=== PATIENT | female | born 1965 | race Caucasian/White ===

== ENCOUNTER 2019-04-24 11:40 | Outpatient (CLI) | payer OTHER, SELFPAY ==
--- NOTE | ~2019-04-24 | XR_ITS ---
EXAMINATION: XR chest 2V EXAM DATE: 04/24/2019 11:50 INDICATION: Cough for 3 weeks. TECHNIQUE: Frontal and lateral projections of the chest obtained and reviewed. Comparison is made to prior examination from 06/06/2018. FINDINGS: Moderate chronic hyperinflation. The lungs are clear. There are no pleural effusions. Th e cardiomediastinal silhouette is within normal limits. There is no pneumothorax suspected. The bon es and soft tissues are unremarkable. IMPRESSION: No acute cardiopulmonary findings. Reviewed, dictated and finalized at location B. LLMENT COORDINATOR
== END 2019-04-24 11:41 | disposition home or self-care (01) ==
PROVIDERS: PCP Family Medicine; Visit Provider Family Medicine
DX: R05 Cough (principal)
CPT/HCPCS: 71046

== ENCOUNTER → 2019-10-13 16:52 | Outpatient (CLI) | payer OTHER, SELFPAY ==
--- NOTE | ~2019-10-13 | XR_ITS ---
EXAMINATION: [id number] INDICATION: Pleurodynia TECHNIQUE: A frontal view of the chest and 3 views of the bilateral ribs were obtained. COMPARISON: 04/24/2019 FINDINGS: The lungs are free of acute opacities. There is no pleural effusion or pneumothorax. The ca rdiomediastinal silhouette is normal. The visualized bones and soft tissues are unremarkable. No disp laced rib fracture is identified. IMPRESSION: 1. No acute cardiopulmonary abnormality or evidence of displaced rib fracture. Reviewed, dictated and finalized at location A.
== END ==
PROVIDERS: PCP Family Medicine; Visit Provider Family Medicine
DX: R07.81 Pleurodynia (principal)
CPT/HCPCS: 71111

== ENCOUNTER 2020-09-07 19:21 | Emergency (ER) | payer OTHER, SELFPAY ==
[2020-09-07 19:27] VITALS: BP 134/87; PULSE 70; RESP 16; TEMP 37.1; O2SAT 97
--- NOTE | 2020-09-07 19:45 | ED.BACK ---
HPI - Back Pain/Injury General Chief Complaint: Back Pain/Injury Stated Complaint: Back Injury Time Seen by Provider: 09/07/20 19:23 Source: patient and family ( ) Mode of arrival: ambulatory Limitations: no limitations History of Present Illness HPI Narrative: 55-year-old female presents to [facility] with complaints of pain to left and right mid back for the past 5 days. Patient reports that pain started after she was preventing her [id number] from falling off of the commode. 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 Patient reports that she did not fall but tweaked her back while assisting him from falling. Patient denies numbness, tingling, bowel or bladder problems, chest pain or shortness of breath. Patient has been taking ibuprofen and leftover hydrocodone with minimal relief. Patient reports that she took half a tablet of hydrocodone twice a day which did not improve her pain much. Patient denies back pain in the past. MD elicited complaint: back pain Onset (ago): day(s) (5) Similar Symptoms Previously: No Quality: sharp Exacerbating factors: movement and lifting Relieving factors: none Associated symptoms: denies other symptoms Related Data Allergies Allergy/AdvReac Type Severity Reaction Status Date / Time neomycin Allergy Unknown Swelling Verified 10/17/19 13:05 of the Eye Review of Systems Constitutional: Constitutional: Denies chills, Denies fatigue, Denies fever(s) and Denies weakness Cardiovascular: Cardiovascular: Denies chest pain, Denies rapid heart rate, Denies radiating jaw, neck or arm pain and Denies slow heart rate Respiratory: Respiratory: Denies chest congestion, Denies cough, Denies dyspnea and Denies wheezing Gastrointestinal: Gastrointestinal: Denies abdominal pain, Denies constipation, Denies diarrhea, Denies nausea and Denies vomiting Musculoskeletal: Musculoskeletal: Reports back pain, Denies joint swelling and Denies muscle cramps Integumentary/Breasts: Skin/Breast: Denies rash Neurologic: Denies dizziness and Denies syncope [facility] Surgical History Surgical History H/O right knee surgery History of removal of both ovaries Family History Family History Mother Diabetes mellitus Hypertension Family history of chronic obstructive pulmonary disease Family history of cardiovascular disease Grandparent Diabetes mellitus Cerebrovascular accident Social History Social History Smoking packs per day: 1 Smoking cigarettes per day: 20.0 Years smoked: 34 Smoking pack-years: 34.00 Smoking status: Current every day smoker Alcohol intake: never Substance use: never Gender identity (if verbalized by the patient): Female Comments At time of signature, I agree with nursing past medical, surgical, social and family history. There is no relevant family history pertinent to the presenting complaint. Exam Const: General: healthy appearing and no acute distress Orientation/consciousness: patient oriented x3 Neck: Neck: normal visual inspection Resp: Effort & Inspection: normal respiratory effort, not labored and not tachypneic Auscultation: clear to auscultation bilaterally Cardio: Rate: regular rate, not bradycardic and not tachycardic Rhythm: regular rhythm GI: Inspection: non-distended GI Palp: Yes Soft to palpation, No Tenderness to palpation present (GI) and No Guarding due to palpation present (GI) : General: No no CVA tenderness Back/Spine/Pelvis: Back: no CVA tenderness Other: Moderate amount of pain noted to right and left mid back. There is no spinal tenderness noted upon palpation. There is no swelling, bruising, erythema or rash present. There is increased amount of pain noted with range of motion to back. Hand grasps and pedal pushes are equal and strong.
[2020-09-07] MEDS: KETOROLAC (*BKC) 60 MG/2 ML VIAL 30 MG IM (19:50)
== END 2020-09-07 20:21 | disposition home or self-care (01) ==
PROVIDERS: Emergency Provider Nurse Practitioner Family; PCP Family Medicine
DX: M54.6 Pain in thoracic spine (principal); F17.219 Nicotine dependence, cigarettes, with unspecified nicotine-induced disorders
CPT/HCPCS: 96372; 99213; G0463; J1885

== ENCOUNTER 2020-11-30 15:22 | Emergency (ER) | payer OTHER, SELFPAY ==
[2020-11-30 15:38] VITALS: BP 149/97; PULSE 75; RESP 16; TEMP 37.4; O2SAT 98
--- NOTE | 2020-11-30 16:50 | ED.URI ---
HPI - URI/Sore Throat General Chief Complaint: Upper Respiratory Infection Stated Complaint: chest congestion headache Time Seen by Provider: 11/30/20 16:50 Source: patient, RN notes reviewed and old records reviewed Mode of arrival: ambulatory Limitations: no limitations History of Present Illness HPI Narrative: 55-year-old female who presents to [facility] with complaints of 1 week duration of sinus congestion headache, cough with scattered wheezing. Patient has history of bronchitis and pneumonia in the past she is a daily smoker of 1 pack for the past 35 years. Patient has noted wheezing throughout lung hughes, no tachypnea noted or accessory muscle use.Covid tested last Sunday so she could see her father in the hospital which was negative, Patient denies any fevers, chills or sweats and denies any body aches. MD elicited complaint: cough, rhinorrhea, nasal congestion and other (wheezing) Pertinent past history: pneumonia, sinusitis and other (bronchitis and pneumonia) Onset (ago): week(s) (1) Related Data Allergies Allergy/AdvReac Type Severity Reaction Status Date / Time neomycin Allergy Unknown Swelling Verified 10/17/19 13:05 of the Eye Review of Systems Review of Systems: CONSTITUTIONAL: Denies fever, chills, or sweats. EYES: Denies visual changes, redness, or discharge. ENT: Positive rhinorrhea, congestion, no sore throat, ears feel full CARDIOVASCULAR: Denies chest pain, palpitations, or edema. RESPIRATORY: Positive for productive cough denies any acute dyspnea. GASTROINTESTINAL: Denies abdominal pain, nausea, vomiting, or diarrhea. GENITOURINARY: Denies dysuria or hematuria. SKIN: Denies rash or itching. MUSCULOSKELETAL: Denies back pain, joint pain, or myalgia. NEUROLOGIC: Positive headache, no numbness, or weakness. PSYCHIATRIC: Denies anxiety or depression. All systems reviewed & are unremarkable except as noted in HPI and below [facility] Past Medical History Medical History (Updated 12/01/20 @ 00:00 by Eddie Sanchez) Bacterial sinusitis Bronchitis Surgical History Surgical History H/O right knee surgery History of removal of both ovaries Family History Family History (Updated 12/05/20 @ 22:50 by Jaylene Chopra NP) Mother Diabetes mellitus Hypertension Family history of chronic obstructive pulmonary disease Family history of cardiovascular disease Grandparent Diabetes mellitus Cerebrovascular accident Father Cerebrovascular accident Social History Social History Smoking packs per day: 1 Smoking cigarettes per day: 20.0 Years smoked: 34 Smoking pack-years: 34.00 Smoking status: Current every day smoker Alcohol intake: never Substance use: never Gender identity (if verbalized by the patient): Female Comments At time of signature, agree with nursing past medical, surgical, social and family history. There is no relevant family history pertinent to the presenting complaint Exam Narrative: GENERAL: Well-appearing, well-nourished, and in no acute distress. HEAD: Normocephalic, atraumatic. EYES: PERRLA and EOMI. ENT: Nares red with clear to light yellow rhinorrhea no epistaxis. Mucous membranes moist.TM;s normal with goodlight reflex, throat red with no lesions or exudates or tonsil enlargement, post nasal drainage NECK: Supple.no lymphadenopathy CHEST: Scattered wheezes on auscultation. No acute respiratory distress.SAO2 98% on room air HEART: Regular rate and rhythm. No murmur heard. Normal peripheral pulses. ABDOMEN: Soft, nontender, nondistended, normal active bowel sounds. EXTREMITIES: Normal range of motion. No edema. SKIN: Warm, dry, no rash. NEURO: No focal deficits. Alert and oriented x3. Course Vital Signs Vital signs: Vital Signs Temperature 37.4 C 11/30/20 15:38 Pulse Rate 75 11/30/20 15:38 Respiratory Rate 16 11/30/20 15:38
== END 2020-11-30 17:29 | disposition home or self-care (01) ==
PROVIDERS: Emergency Provider Registered Nurse; PCP Radiology Diagnostic Radiology
DX: J40 Bronchitis, not specified as acute or chronic (principal); J32.9 Chronic sinusitis, unspecified; Z20.822 Contact with and (suspected) exposure to COVID-19; F17.210 Nicotine dependence, cigarettes, uncomplicated
CPT/HCPCS: 87426; 99213; C9803; G0463

== ENCOUNTER 2021-01-26 14:18 | Outpatient (CLI) | payer OTHER, SELFPAY ==
--- NOTE | ~2021-01-26 | XR_ITS ---
XR thoracic spine 3V DATE: 01/26/2021 14:53 INDICATION: Twisting injury of upper back in August. Left thoracic back pain TECHNIQUE: AP, lateral, swimmer views COMPARISON: None FINDINGS: There is moderate anterior wedge compression fracture deformity of T7, of uncertain age, bu t new since 10/13/2019 PA chest radiograph and bilateral rib radiographic examination. No other fracture or dislocation or bone destruction. The thoracic pedicles are intact. No paraspinal soft tissue thickening. IMPRESSION: T7 compression fracture, new since 10/13/2019 Reviewed, dictated and finalized at location A.
--- NOTE | ~2021-01-26 | XR_ITS ---
XR abdomen obstructive series DATE: 01/26/2021 14:53 INDICATION: Upper abdominal pain and constipation for one week TECHNIQUE: Supine and upright AP views COMPARISON: None FINDINGS: There is a moderately prominent of fecal material in the colon but no evidence of bowel obs truction. No intraperitoneal free air. The psoas shadows are intact. No visceromegaly is detected. IMPRESSION: Moderately prominent amount fecal material in the colon; no bowel obstruction Reviewed, dictated and finalized at Location A. Reviewed, dictated and finalized at location A. IMPRESSION: Moderately prominent amount fecal material in the colon; no bowel o bstruction
[2021-01-26 18:11] LABS: Basophils Absolute Auto 0.1 K/mm3 (0.0-0.1); Basophils Percent Auto 0.8 % (0.2-1.2); Eosinophils Absolute Auto 0.2 K/mm3 (0-0.3); Eosinophils Percent Auto 2.1 % (0-4.4); Hematocrit 47.8 % (37.0-47.0); Hemoglobin 15.9 g/dL (12.0-15.0); Immature Granulocyte Absolute 0.04 K/mm3 (0.00-0.031); Immature Granulocyte Percent A 0.4 % (0-0.5); Lymphocytes Absolute Auto 3.14 K/mm3 (0.9-3.2); Lymphocytes Percent Auto 32.1 % (18.3-44.2); Mean Corpuscular HGB Conc 33.3 g/dl (32-36); Mean Corpuscular Hemoglobin 32.4 pg (26-34); Mean Corpuscular Volume 97.6 fl (80-100); Mean Platelet Volume 10.4 fl (7.4-10.4); Monocytes Absolute Auto 0.6 K/mm3 (0.1-0.6); Monocytes Percent Auto 5.8 % (2.6-8.5); Neutrophils Absolute Auto 5.7 K/mm3 (1.3-6.7); Neutrophils Percent Auto 58.8 % (45.5-73.1); Platelet Count Result 262 k/mm3 (150-375); Red Cell Distribution Width 12.6 % (11.5-14.5); White Blood Count 9.8 K/mm3 (4.5-10.0)
[2021-01-26 18:20] LABS: Alanine Aminotransferase 26 U/L (4-35); Albumin Level 4.7 g/dL (3.5-5.1); Alkaline Phosphatase 68 U/L (38-126); Anion Gap 10 mmol/L (8-16); Aspartate Amino Transferase 33 U/L (14-36); Bilirubin,Total 0.6 mg/dL (0.2-1.3); Blood Urea Nitrogen 12 mg/dL (7-17); Calcium 10.5 mg/dL (8.4-10.2); Carbon Dioxide 28 mmol/L (22-30); Chloride 102 mmol/L (98-107); Cholesterol 189 mg/dL (0-200); Estimated Glomerular Filt Rate > 60; Glucose 87 mg/dL (65-110); HDL Direct 56 mg/dL; Lipase 105 U/L (23-300); Potassium 4.3 mmol/L (3.4-5.0); Sodium 140 mmol/L (137-145); Triglycerides 109 mg/dL (<150)
[2021-01-26 18:32] LABS: LDL Cholesterol Direct 109 mg/dL
[2021-01-26 19:33] LABS: Vitamin D 25 Hydroxy 60.8 ng/mL
[2021-01-26 20:44] LABS: Hemoglobin A1C 5.3 % (<5.7)
== END 2021-01-26 14:19 | disposition home or self-care (01) ==
LOC: ANHBWCLAB 14:22
PROVIDERS: PCP Family Medicine; Visit Provider Family Medicine
DX: F41.9 Anxiety disorder, unspecified (principal); S22.069A Unspecified fracture of T7-T8 vertebra, initial encounter for closed fracture; F17.200 Nicotine dependence, unspecified, uncomplicated; Z00.00 Encounter for general adult medical examination without abnormal findings; K59.00 Constipation, unspecified; G47.00 Insomnia, unspecified; R10.9 Unspecified abdominal pain; R79.89 Other specified abnormal findings of blood chemistry; Z51.81 Encounter for therapeutic drug level monitoring; Z79.899 Other long term (current) drug therapy
CPT/HCPCS: 36415; 72072; 74019; 80053; 80061; 82306; 83036; 83690; 85025

== ENCOUNTER 2021-02-23 08:51 | Outpatient (CLI) | payer OTHER, SELFPAY ==
[2021-02-26 06:22] LABS: Ionized Calcium 5.2 mg/dL (4.8-5.6)
== END 2021-02-23 08:52 | disposition home or self-care (01) ==
PROVIDERS: PCP Family Medicine; Visit Provider Family Medicine
DX: F41.9 Anxiety disorder, unspecified (principal); F17.200 Nicotine dependence, unspecified, uncomplicated; Z00.00 Encounter for general adult medical examination without abnormal findings; E83.52 Hypercalcemia
CPT/HCPCS: 36415; 82330; 83036

== ENCOUNTER 2021-08-02 15:44 | Emergency (ER) | payer OTHER, SELFPAY ==
[2021-08-02 15:53] VITALS: BP 148/94; PULSE 72; RESP 16; TEMP 36.8; O2SAT 99
--- NOTE | 2021-08-02 16:04 | ED.SKABFB ---
HPI - Skin/Abscess/Foreign Bdy General Chief complaint: Skin/Abscess/Foreign Body Stated complaint: Rash Time Seen by Provider: 08/02/21 16:04 Source: patient, RN notes reviewed and old records reviewed Mode of arrival: ambulatory Limitations: no limitations History of Present Illness HPI narrative: 56 year old female presents to express care with complaints of rash and itching to the palm of her hands bilaterally since Sunday. Patient reports using Lotrimin cream and Benadryl orally for the itching. Patient does state that she pulled some weeds out from around her odonnell on Sunday like she has done for years, no new medication,foods, or any new lotions, soaps or detergents. complaint: rash Onset (ago): day(s) (2) Location: L hand and R hand Related Data Allergies Allergy/AdvReac Type Severity Reaction Status Date / Time neomycin Allergy Unknown Swelling Verified 01/26/21 13:23 of the Eye Review of Systems Review of Systems: CONSTITUTIONAL: Denies fever, chills, or sweats. EYES: Denies visual changes, redness, or discharge. ENT: Denies rhinorrhea, congestion, sore throat, or otalgia. CARDIOVASCULAR: Denies chest pain, palpitations, or edema. RESPIRATORY: Denies cough or dyspnea. GASTROINTESTINAL: Denies abdominal pain, nausea, vomiting, or diarrhea. GENITOURINARY: Denies dysuria or hematuria. SKIN: Positive rash to bilateral hands with itching. MUSCULOSKELETAL: Denies back pain, joint pain, or myalgia. NEUROLOGIC: Denies headache, numbness, or weakness. PSYCHIATRIC: Denies anxiety or depression. All systems reviewed & are unremarkable except as noted in HPI and below [facility] Past Medical History Medical History (Updated 08/03/21 @ 23:13 by Jaylene Chopra NP) Bacterial sinusitis Bronchitis Cystocele with rectocele surgical repair Osteopenia Surgical History Surgical History H/O right knee surgery History of removal of both ovaries Family History Family History Mother Diabetes mellitus Hypertension Family history of chronic obstructive pulmonary disease Family history of cardiovascular disease Grandparent Diabetes mellitus Cerebrovascular accident Father Cerebrovascular accident Social History Social History Smoking packs per day: 1 Smoking cigarettes per day: 20.0 Years smoked: 34 Smoking pack-years: 34.00 Smoking status: Current every day smoker Alcohol intake: never Substance use: never Gender identity (if verbalized by the patient): Female Comments At time of signature, agree with nursing past medical, surgical, social and family history. There is no relevant family history pertinent to the presenting complaint Exam Narrative: GENERAL: Well-appearing, well-nourished, and in no acute distress. HEAD: Normocephalic, atraumatic. EYES: PERRLA and EOMI. ENT: Nares clear, no rhinorrhea or epistaxis. Mucous membranes moist.TM's normal with good light reflex, throat pink with no lesions or exudates,no tonsil swelling NECK: Supple.no lymphadenopathy CHEST: Decreased to auscultation. No respiratory distress. SAO2 99% on room air, no tachypnea HEART: Regular rate and rhythm. No murmur heard. Normal peripheral pulses. ABDOMEN: Soft, nontender, nondistended, normal active bowel sounds. EXTREMITIES: Normal range of motion. No edema. SKIN: Warm, dry, smooth pink patchy rash to palms of hands no drainage noted. NEURO: No focal deficits. Alert and oriented x3. Course Course Level of Care: Express Care Visit Vital Signs Vital signs: Vital Signs Temperature 36.8 C 08/02/21 15:53 Pulse Rate 72 08/02/21 15:53 Respiratory Rate 16 08/02/21 15:53 Blood Pressure 148/94 H 08/02/21 15:53 Pulse Oximetry 99 08/02/21 15:53 Temperature 36.8 C 08/02/21 15:53 Pulse Rate 72 08/02/21 15:53 Respiratory Ra
== END 2021-08-02 16:31 | disposition home or self-care (01) ==
PROVIDERS: Emergency Provider Registered Nurse; PCP Family Medicine
DX: L25.9 Unspecified contact dermatitis, unspecified cause (principal); F17.210 Nicotine dependence, cigarettes, uncomplicated
CPT/HCPCS: 99213; G0463

== ENCOUNTER 2021-09-25 11:51 | Emergency (ER) | payer OTHER, SELFPAY ==
[2021-09-25 11:56] VITALS: BP 139/71; PULSE 71; RESP 18; TEMP 37.2; O2SAT 99
[2021-09-25 12:06] VITALS: BP 139/71; PULSE 71; RESP 18; TEMP 37.2; O2SAT 99
--- NOTE | 2021-09-25 12:07 | ED.BACK ---
HPI - Back Pain/Injury General Chief Complaint: Back Pain/Injury Stated Complaint: Back Pain Time Seen by Provider: 09/25/21 12:08 Source: patient Mode of arrival: ambulatory Limitations: no limitations History of Present Illness HPI Narrative: 56-year-old female presented for complaint of left lower back pain radiating to the hip for 3 days. States pain is located in the hip, does not radiate to the lower extremity. Endorses history of sciatica problems and known T-spine compression fracture. Denies changes to bowel and bladder, saddle paresthesia, numbness, tingling, weakness of the lower extremities. Has been taking ibuprofen and using heating pad for symptoms. Reports sinus pressure and congestion for about 1 week, stating its starting to improve. Endorses left neck lymph node swelling and bilateral ear pain. She denies associated shortness of breath, wheezing, fevers or chills. Has not been taking anything for symptoms. Related Data Allergies Allergy/AdvReac Type Severity Reaction Status Date / Time neomycin Allergy Unknown Swelling Verified 09/25/21 12:05 of the Eye Review of Systems Review of Systems: CONSTITUTIONAL: Denies body aches, fever, chills EYES: Denies visual changes ENT: Reports rhinorrhea, congestion CARDIOVASCULAR: Denies chest pain, palpitations, or edema. RESPIRATORY: Denies dyspnea. GASTROINTESTINAL: Denies abdominal pain, nausea, vomiting, or diarrhea. SKIN: Denies rash, itching, or wounds. MUSCULOSKELETAL: Reports thoracic back pain, left lower back pain and hip pain NEUROLOGIC: Denies headache, numbness, tingling, or weakness All systems reviewed & are unremarkable except as noted in HPI and below PMFSH Past Medical History Medical History Bacterial sinusitis Bronchitis Cystocele with rectocele surgical repair Osteopenia Surgical History Surgical History H/O right knee surgery History of removal of both ovaries Family History Family History Mother Diabetes mellitus Hypertension Family history of chronic obstructive pulmonary disease Family history of cardiovascular disease Grandparent Diabetes mellitus Cerebrovascular accident Father Cerebrovascular accident Social History Social History Smoking packs per day: 1 Smoking cigarettes per day: 20.0 Years smoked: 34 Smoking pack-years: 34.00 Smoking status: Current every day smoker Alcohol intake: never Substance use: never Gender identity (if verbalized by the patient): Female Comments At time of signature, I have reviewed and agree with nursing past medical, surgical, social and family history unless otherwise noted. Please see nursing chart for further information. There is no relevant family history pertinent to the presenting complaint Exam Narrative: GENERAL: Well-appearing EYES: conjunctivae clear NECK: Supple. No lymphadenopathy CHEST: Speaks in full sentences. No respiratory distress. HEART: Regular rate and rhythm. Normal and equal peripheral pulses. EXTREMITIES: Left posterior hip tender with palpation consistent with piriformis syndrome. Left lower extremity has normal strength and sensation, normal range of motion. No edema or ecchymosis, No open wounds,pulse palpable and equal bilaterally, skin warm, dry, pink. Capillary refill less than 3 seconds. Gait is guarded SKIN: Warm, dry, no rash. NEURO: Alert and oriented x3. Course Course Emergency Course: Patient is aware of diagnosis, understands and agrees to treatment plan. Anticipatory guidance given. Patient agrees to follow-up as directed and is aware of reasons to seek care at the emergency department. Portions of this record may have been created with voice recognition software Level of Care: Expr
[2021-09-25] MEDS: methylPREDNISolone SOD SUCC 125 MG VIAL IM (12:24)
== END 2021-09-25 12:44 | disposition home or self-care (01) ==
PROVIDERS: Emergency Provider Nurse Practitioner Family; PCP Family Medicine
DX: M54.16 Radiculopathy, lumbar region (principal); F17.210 Nicotine dependence, cigarettes, uncomplicated
CPT/HCPCS: 99213; G0463; J2930

== ENCOUNTER 2022-02-20 11:11 | Outpatient (CLI) | payer OTHER, SELFPAY ==
--- NOTE | ~2022-02-20 | XR_ITS ---
EXAMINATION: XR abdomen obstructive series DATE: 02/20/2022 11:33 INDICATION: Low abdominal pain. Constipation. TECHNIQUE: Supine and upright views of the abdomen. FINDINGS: Comparison with 01/26/2021 The visualized lung parenchyma is normal.. There is a nonobstructive bowel gas pattern. Gas and stool are seen throughout the colon to the level of the rectum. There is no free air. Lung bases are unre markable. No acute osseous abnormality. IMPRESSION: 1. No acute abdominal abnormality. Reviewed, dictated and finalized at location A. ROL CLERK
[2022-02-20 19:56] LABS: Basophils Absolute Auto 0.1 K/mm3 (0.0-0.1); Basophils Percent Auto 0.7 % (0.2-1.2); Eosinophils Absolute Auto 0.1 K/mm3 (0-0.3); Hematocrit 45.9 % (37.0-47.0); Hemoglobin 15.4 g/dL (12.0-15.0); Immature Granulocyte Absolute 0.01 K/mm3 (0.00-0.031); Immature Granulocyte Percent A 0.1 % (0-0.5); Lymphocytes Absolute Auto 3.14 K/mm3 (0.9-3.2); Lymphocytes Percent Auto 45.6 % (18.3-44.2); Mean Corpuscular HGB Conc 33.6 g/dl (32-36); Mean Corpuscular Hemoglobin 31.5 pg (26-34); Mean Corpuscular Volume 93.9 fl (80-100); Mean Platelet Volume 10.4 fl (7.4-10.4); Monocytes Absolute Auto 0.4 K/mm3 (0.1-0.6); Monocytes Percent Auto 6.1 % (2.6-8.5); Neutrophils Absolute Auto 3.2 K/mm3 (1.3-6.7); Neutrophils Percent Auto 46.5 % (45.5-73.1); Platelet Count Result 242 k/mm3 (150-375); Red Blood Count 4.89 M/mm3 (4.2-5.4); Red Cell Distribution Width 13.1 % (11.5-14.5); White Blood Count 6.9 K/mm3 (4.5-10.0)
[2022-02-20 20:07] LABS: Appearance Urine Clear (Clear); Bilirubin Urine Negative (Negative); Blood Urine Negative (Negative); Color Urine Yellow (Yellow); Glucose Urine UA Negative (Negative); Ketones Urine Negative (Negative); Leukocyte Esterase Ur Negative LEU/UL (NEGATIVE); Nitrate Urine Negative (Negative); Protein Urine Negative (Negative); Specific Grav Ur >= 1.030 (1.001-1.035); Urobilinogen Urine 0.2 mg/dL (<2.0)
[2022-02-20 20:10] LABS: Alanine Aminotransferase 37 U/L (6-35); Albumin Level 4.7 g/dL (3.5-5.1); Alkaline Phosphatase 80 U/L (38-126); Anion Gap 11 mmol/L (8-16); Aspartate Amino Transferase 49 U/L (14-36); Bilirubin,Total 0.8 mg/dL (0.2-1.3); Blood Urea Nitrogen 14 mg/dL (7-17); Calcium 9.3 mg/dL (8.4-10.2); Carbon Dioxide 26 mmol/L (22-30); Chloride 103 mmol/L (98-107); Cholesterol 209 mg/dL (0-200); Estimated Glomerular Filt Rate > 60; Glucose 89 mg/dL (65-110); HDL Direct 43 mg/dL; Potassium 4.2 mmol/L (3.4-5.0); Sodium 140 mmol/L (137-145); Triglycerides 194 mg/dL (<150)
[2022-02-20 20:21] LABS: LDL Cholesterol Direct 103 mg/dL
[2022-02-20 22:01] LABS: Mucus Urine Rare /lpf; RBC Urine 0-2 /hpf (0-2); WBC Urine 0-3 /hpf (0-3)
[2022-02-20 22:13] LABS: Add Urine Microscopic? NO
== END 2022-02-20 11:12 | disposition home or self-care (01) ==
LOC: ANHBWCLAB 11:13
PROVIDERS: PCP Family Medicine; Visit Provider Family Medicine
DX: R10.9 Unspecified abdominal pain (principal); K59.00 Constipation, unspecified
CPT/HCPCS: 36415; 74019; 80053; 80061; 81003; 85025

== ENCOUNTER 2022-05-10 12:18 | Emergency (ER) | payer OTHER, SELFPAY ==
--- NOTE | 2022-05-10 12:20 | ED.URI ---
HPI - URI/Sore Throat General Chief Complaint: Ear Stated Complaint: left ear / sciatic nerve Time Seen by Provider: 05/10/22 12:21 Source: patient and RN notes reviewed History of Present Illness HPI Narrative: Patient is a 57-year-old female who presents to urgent care with complaints of left ear discomfort and left-sided sciatica. Patient states that she has acute on chronic pains. Patient has been taking tramadol for the pain. States that she typically gets a steroid which seems to help. Patient states the left ears were bothering her for 1 week and she has not taken anything [id number] for her symptoms. No other acute complaints. No acute distress noted. Patient aware of the plan of care. Some parts of this dictation were generated by voice recognition software and may contain typographical and/or grammatical inaccuracies. Related Data Allergies Allergy/AdvReac Type Severity Reaction Status Date / Time neomycin Allergy Unknown Swelling Verified 02/20/22 10:45 of the Eye Review of Systems Review of Systems: CONSTITUTIONAL: Denies fever, chills, or sweats. EYES: Denies visual changes, redness, or discharge. ENT: Denies rhinorrhea, congestion, sore throat. Reports of left otalgia CARDIOVASCULAR: Denies chest pain, palpitations, or edema. RESPIRATORY: Denies cough or dyspnea. GASTROINTESTINAL: Denies abdominal pain, nausea, vomiting, or diarrhea. GENITOURINARY: Denies dysuria or hematuria. SKIN: Denies rash or itching. MUSCULOSKELETAL: Reports of left-sided low back pain NEUROLOGIC: Denies headache, numbness, or weakness. All other systems reviewed are negative, except as documented in HPI. [facility] Past Medical History Medical History Bacterial sinusitis Bronchitis Cystocele with rectocele surgical repair Osteopenia Surgical History Surgical History H/O right knee surgery History of removal of both ovaries Family History Family History Mother Diabetes mellitus Hypertension Family history of chronic obstructive pulmonary disease Family history of cardiovascular disease Grandparent Diabetes mellitus Cerebrovascular accident Father Cerebrovascular accident Social History Social History (Updated 02/20/22 @ 10:45 by Alley Cortes MA) Smoking packs per day: 1 Smoking cigarettes per day: 20.0 Years smoked: 34 Smoking pack-years: 34.00 Smoking status: Current every day smoker Alcohol intake: never Substance use: never Lack of Transportation: No Lack of Food: Never True Current Housing: I Have Housing Concerned About Future Housing: No Difficulty Paying Gas/Electric Bills: No Difficulty Paying for Meds: No Currently Unemployed: No Education: Associate Degree Difficulty w/ Childcare or Family Care: No Gender identity (if verbalized by the patient): Female Exam Narrative: GENERAL: This is a well-nourished, well-developed patient, in no apparent distress. HEAD: normocephalic, atraumatic. EYES: PERRL. Sclera clear/white. Vision is grossly intact. EARS: External ears normal, auditory canals clear and without drainage, mild bilateral eustachian tube dysfunction. TMs normal without perforation. Hearing grossly intact. NOSE: External nose normal with no obvious nasal discharge, nares without redness, no rhinorrhea. THROAT: Mucous membranes moist NECK: Neck supple SKIN: warm, intact with no suspicious lesions or rash, good texture and turgor. NEURO: awake, alert, and oriented to person, place and time. There were no obvious focal neurologic abnormalities. EXTREMITIES: No clubbing, cyanosis, or edema. BACK: Mild left lumbar tenderness with positive left SLE Course Course Level of Care: Express Care Visit Vital Signs Vital signs: Vital Signs Temperature 98.6 F 05/10/22 12:2
[2022-05-10 12:23] VITALS: BP 121/73; PULSE 69; RESP 16; TEMP 37; O2SAT 99
[2022-05-10] MEDS: predniSONE 20 MG TABLET 60 MG PO (13:04)
== END 2022-05-10 13:16 | disposition home or self-care (01) ==
PROVIDERS: Emergency Provider Nurse Practitioner Family; PCP Family Medicine
DX: M54.32 Sciatica, left side (principal); F17.210 Nicotine dependence, cigarettes, uncomplicated; M85.80 Other specified disorders of bone density and structure, unspecified site
CPT/HCPCS: 99213; G0463; J7512

== ENCOUNTER 2022-05-23 15:08 | Outpatient (CLI) | payer OTHER, SELFPAY ==
--- NOTE | ~2022-05-23 | XR_ITS ---
XR chest 2V 05/23/2022 15:16 Indication: Running sinusitis and cough Procedure: 2 view chest Comparison: 04/24/2019 Findings: Heart size normal. There is lingular atelectasis/scarring. No focal pneumonia, edema or eff usion. No pneumothorax. Impression: 1: Lingular atelectasis/scarring. Reviewed, dictated and finalized at location L. ORATE TREASURY ANALYST Impression: 1: Lingular atelectasis/scarring.
== END 2022-05-23 15:09 | disposition home or self-care (01) ==
LOC: ANHBWCIMG 15:09
PROVIDERS: PCP Family Medicine; Visit Provider Family Medicine
DX: J32.9 Chronic sinusitis, unspecified (principal); J06.9 Acute upper respiratory infection, unspecified; J18.9 Pneumonia, unspecified organism; J98.11 Atelectasis
CPT/HCPCS: 71046

== ENCOUNTER 2022-09-13 19:34 | Emergency (ER) | payer OTHER, SELFPAY ==
[2022-09-13 19:38] VITALS: BP 133/70; PULSE 70; RESP 18; TEMP 36.8; O2SAT 98
--- NOTE | 2022-09-13 19:43 | ED.SKABFB ---
HPI - Skin/Abscess/Foreign Bdy General Chief complaint: Skin/Abscess/Foreign Body Stated complaint: Rash on Left Foot Time Seen by Provider: 09/13/22 19:43 Source: patient and RN notes reviewed History of Present Illness HPI narrative: Patient is a 57-year-old female presents to urgent care with complaints of a rash to the left foot. Patient states that it started last night. States that she has had this for many years however she has not had a reoccurrence for a long time. Patient states that she use betamethasone cream on the area and has good resolution. Patient does not have any cream at home. No other acute complaints. No acute distress noted. Patient aware of the plan of care. Some parts of this dictation were generated by voice recognition software and may contain typographical and/or grammatical inaccuracies. Related Data Allergies Allergy/AdvReac Type Severity Reaction Status Date / Time neomycin Allergy Unknown Swelling Verified 09/13/22 19:45 of the Eye Review of Systems Review of Systems: CONSTITUTIONAL: Denies fever, chills, or sweats. EYES: Denies visual changes, redness, or discharge. ENT: Denies rhinorrhea, congestion, sore throat, or otalgia. CARDIOVASCULAR: Denies chest pain, palpitations, or edema. RESPIRATORY: Denies cough or dyspnea. GASTROINTESTINAL: Denies abdominal pain, nausea, vomiting, or diarrhea. GENITOURINARY: Denies dysuria or hematuria. SKIN: Reports of itchy painful rash to the top of the left foot MUSCULOSKELETAL: Denies back pain, joint pain, or myalgia. NEUROLOGIC: Denies headache, numbness, or weakness. All other systems reviewed are negative, except as documented in HPI. [facility] Past Medical History Medical History Bacterial sinusitis Bronchitis Cystocele with rectocele surgical repair Osteopenia Surgical History Surgical History H/O right knee surgery History of removal of both ovaries Family History Family History Mother Diabetes mellitus Hypertension Family history of chronic obstructive pulmonary disease Family history of cardiovascular disease Grandparent Diabetes mellitus Cerebrovascular accident Father Cerebrovascular accident Social History Social History (Updated 02/20/22 @ 10:45 by Alley Cortes MA) Smoking packs per day: 1 Smoking cigarettes per day: 20.0 Years smoked: 34 Smoking pack-years: 34.00 Smoking status: Current every day smoker Alcohol intake: never Substance use: never Lack of Transportation: No Lack of Food: Never True Current Housing: I Have Housing Concerned About Future Housing: No Difficulty Paying Gas/Electric Bills: No Difficulty Paying for Meds: No Currently Unemployed: No Education: Associate Degree Difficulty w/ Childcare or Family Care: No Gender identity (if verbalized by the patient): Female Comments At the time of my signature, I reviewed and agree with the nursing past medical, surgical, social, and family history. There is no relevant family history pertinent to the patient complaint. Exam Narrative: GENERAL: This is a well-nourished, well-developed patient, in no apparent distress. HEAD: normocephalic, atraumatic. EYES: PERRL. Sclera clear/white. Vision is grossly intact. EARS: External ears normal NOSE: External nose normal with no obvious nasal discharge, nares without redness, no rhinorrhea. THROAT: Mucous membranes moist NECK: Neck supple SKIN: Papular raised erythema rash to the dorsal medial aspect of the left foot. NEURO: awake, alert, and oriented to person, place and time. There were no obvious focal neurologic abnormalities. EXTREMITIES: No clubbing, cyanosis, or edema. Course Course Level of Care: Express Care Visit Vital Signs Vital signs: Vital Signs Temperature 98.2 F
== END 2022-09-13 19:49 | disposition home or self-care (01) ==
PROVIDERS: Emergency Provider Nurse Practitioner Family; PCP Family Medicine
DX: L30.9 Dermatitis, unspecified (principal); F17.210 Nicotine dependence, cigarettes, uncomplicated; M85.80 Other specified disorders of bone density and structure, unspecified site
CPT/HCPCS: 99213; G0463

== ENCOUNTER 2023-01-16 14:02 | Outpatient (CLI) | payer OTHER, SELFPAY ==
[2023-01-16 18:59] LABS: Hematocrit 45.4 % (37.0-47.0); Hemoglobin 14.7 g/dL (12.0-15.0); Mean Corpuscular HGB Conc 32.4 g/dl (32-36); Mean Corpuscular Hemoglobin 31.9 pg (26-34); Mean Corpuscular Volume 98.5 fl (80-100); Mean Platelet Volume 10.3 fl (7.4-10.4); Platelet Count Result 306 k/mm3 (150-375); Red Blood Count 4.61 M/mm3 (4.2-5.4); Red Cell Distribution Width 12.9 % (11.5-14.5)
[2023-01-16 19:15] LABS: Alanine Aminotransferase 26 U/L (6-35); Albumin Level 4.5 g/dL (3.5-5.1); Alkaline Phosphatase 86 U/L (38-126); Anion Gap 8 mmol/L (8-16); Aspartate Amino Transferase 69 U/L (14-36); Bilirubin,Total 0.5 mg/dL (0.2-1.3); Blood Urea Nitrogen 13 mg/dL (7-17); Calcium 9.3 mg/dL (8.4-10.2); Carbon Dioxide 29 mmol/L (22-30); Chloride 104 mmol/L (98-107); Cholesterol 192 mg/dL (0-200); Estimated Glomerular Filt Rate > 60; Glucose 93 mg/dL (65-110); HDL Direct 43 mg/dL; Magnesium 1.9 mg/dL (1.6-2.3); Sodium 141 mmol/L (137-145); Triglycerides 175 mg/dL (<150)
[2023-01-16 19:25] LABS: LDL Cholesterol Direct 102 mg/dL
[2023-01-16 19:46] LABS: Vitamin D 25 Hydroxy 37.5 ng/mL
[2023-01-16 19:52] LABS: Erythrocyte Sedimentation Rate 12 mm/hr (0-20)
[2023-01-19 21:04] LABS: ANA Cascade Screen Negative (Negative)
== END 2023-01-16 14:03 | disposition home or self-care (01) ==
PROVIDERS: PCP Nurse Practitioner Adult Health; Visit Provider Nurse Practitioner Adult Health
DX: Z12.31 Encounter for screening mammogram for malignant neoplasm of breast (principal); Z13.9 Encounter for screening, unspecified; M85.80 Other specified disorders of bone density and structure, unspecified site; M25.50 Pain in unspecified joint; E83.52 Hypercalcemia
CPT/HCPCS: 36415; 80053; 80061; 82306; 83735; 84443; 85027; 85652; 86038

== ENCOUNTER 2023-02-20 09:13 | Outpatient (CLI) | payer OTHER, SELFPAY ==
--- NOTE | ~2023-02-20 | XR_ITS ---
Lumbosacral Spine: AP and lateral views Clinical History: Pain Findings: The normal lordotic curve is maintained. The vertebral bodies and posterior elements are i ntact. The intervertebral disc spaces are preserved. The sacroiliac joints are normally outlined. Impression: No significant abnormality. Reviewed, dictated and finalized at [facility]. TRANSMISSION TECHNICIAN Impression: No significant abnormality.
--- NOTE | ~2023-02-20 | XR_ITS ---
AP and lateral views of the bilateral hips Clinical history: Pain Findings: No acute fracture or dislocation is seen. Osseous alignment is anatomic. Bilateral hip and SI joint spaces are preserved. Soft tissues are unremarkable. Impression: No significant abnormality is seen. Reviewed, dictated and finalized at [facility]. S REPRESENTATIVE MALT LIQUORS Impression: No significant abnormality is seen.
[2023-02-20 19:39] LABS: Uric Acid 3.7 mg/dL (2.5-7.5)
== END 2023-02-20 09:14 | disposition home or self-care (01) ==
PROVIDERS: PCP Nurse Practitioner Adult Health; Visit Provider Nurse Practitioner Adult Health
DX: M54.9 Dorsalgia, unspecified (principal); M25.50 Pain in unspecified joint; M25.551 Pain in right hip; M25.552 Pain in left hip
CPT/HCPCS: 36415; 72100; 73521; 84550

== ENCOUNTER 2023-06-18 10:32 | Emergency (ER) | payer OTHER, SELFPAY ==
[2023-06-18 10:42] VITALS: BP 123/76; PULSE 75; RESP 16; TEMP 37.1; O2SAT 99
--- NOTE | 2023-06-18 10:47 | ED.EXTPRO ---
HPI - Extremity Problem General Chief complaint: Extremity Problem,Nontraumatic Stated complaint: Right Hand/Arm Pain Time Seen by Provider: 06/18/23 10:47 Source: patient Mode of arrival: ambulatory Limitations: no limitations History of Present Illness HPI Narrative: 58-year-old female presented for complaint of right hand pain. Onset 5 days. Pain is primarily to the index finger (MCP joint). Endorses mild swelling, and decreased range of motion to the finger. denies bruising or wounds. Denies known injury. She states she pulled a few weeds prior to onset. States pain radiates up the arm to the neck at times since yesterday. Denies numbness, tingling, weakness of the hand. Took ibuprofen. Related Data Allergies Allergy/AdvReac Type Severity Reaction Status Date / Time neomycin Allergy Unknown Swelling Verified 02/20/23 08:39 of the Eye Review of Systems Review of Systems: CONSTITUTIONAL: Denies body aches, fever, chills CARDIOVASCULAR: Denies chest pain, palpitations, or edema. RESPIRATORY: Denies cough or dyspnea. GASTROINTESTINAL: Denies abdominal pain, nausea, vomiting, or diarrhea. SKIN: Denies rash, itching, or wounds. MUSCULOSKELETAL: Reports right hand pain Denies change in back pain, or myalgia. NEUROLOGIC: Denies headache, numbness, tingling, or weakness. All systems reviewed & are unremarkable except as noted in HPI and below PMFSH Past Medical History Medical History Bacterial sinusitis Bronchitis Cystocele with rectocele surgical repair Osteopenia Surgical History Surgical History H/O right knee surgery History of removal of both ovaries Family History Family History Mother Diabetes mellitus Hypertension Family history of chronic obstructive pulmonary disease Family history of cardiovascular disease Grandparent Diabetes mellitus Cerebrovascular accident Father Cerebrovascular accident Social History Social History Smoking packs per day: 1 Smoking cigarettes per day: 20.0 Years smoked: 34 Smoking pack-years: 34.00 Smoking status: Current every day smoker Alcohol intake: never Substance use: never Lack of Transportation: No Lack of Food: Never True Current Housing: I Have Housing Concerned About Future Housing: No Difficulty Paying Gas/Electric Bills: No Difficulty Paying for Meds: No Currently Unemployed: No Education: Associate Degree Difficulty w/ Childcare or Family Care: No Gender identity (if verbalized by the patient): Female Comments At time of signature, I have reviewed and agree with nursing past medical, surgical, social and family history unless otherwise noted. Please see nursing chart for further information. There is no relevant family history pertinent to the presenting complaint Exam Narrative: GENERAL: Well-appearing CHEST: Speaks in full sentences. No respiratory distress. HEART: Regular rate and rhythm. Normal and equal peripheral pulses. EXTREMITIES: Right 2nd MCP with mild swelling and tender with palpation. No tenderness to palmar aspect of the MCP. swelling extends from MCP to web space between 1st and 2nd digits. Slightly limited range of motion at 2nd MCP joint, endorses pain with movement and swelling prevents full ROM. Hand has normal strength and sensation, No ecchymosis, No open wounds, or obvious deformity; alignment normal, pulse palpable and equal bilaterally, skin warm, dry, pink. Capillary refill less than 3 seconds. SKIN: Warm, dry, no rash or wounds NEURO: Alert and oriented x3. PSYCH: Normal mood and affect Course Course Emergency Course: Patient is aware of diagnosis, understands and agrees to treatment plan. Anticipatory guidance given. Patient agrees to follow-
== END 2023-06-18 11:02 | disposition home or self-care (01) ==
PROVIDERS: Emergency Provider Nurse Practitioner Family; PCP Family Medicine
DX: M79.641 Pain in right hand (principal); F17.210 Nicotine dependence, cigarettes, uncomplicated; M85.80 Other specified disorders of bone density and structure, unspecified site
CPT/HCPCS: 99213; G0463

== ENCOUNTER 2023-08-23 09:59 | Outpatient (CLI) | payer OTHER, SELFPAY ==
--- NOTE | ~2023-08-23 | XR_ITS ---
Clinical Indication: Nausea and dizziness PA and lateral views of the chest: Comparison: 05/23/2022 Findings: The lungs are clear, without evidence of focal consolidation or pleural effusion. Cardiome diastinal silhouette is within normal limits. Stable compression fracture of probably T7. Impression: Clear lungs. Stable compression fracture of probably T7. Reviewed, dictated and finalized at location . Impression: Clear lungs. Stable compression fracture of probably T7.
== END 2023-08-23 10:00 | disposition home or self-care (01) ==
LOC: ANHASCIMG 10:00 → ANHBWCIMG 10:04
PROVIDERS: PCP Nurse Practitioner Adult Health; Visit Provider Nurse Practitioner Adult Health
DX: R42 Dizziness and giddiness (principal); M48.54XA Collapsed vertebra, not elsewhere classified, thoracic region, initial encounter for fracture
CPT/HCPCS: 71046

== ENCOUNTER 2023-11-01 11:56 | Outpatient (CLI) | payer OTHER, SELFPAY ==
--- NOTE | ~2023-11-01 | XR_ITS ---
Thoracic spine: Clinical Indication: Back pain AP and lateral views were performed. No fracture is seen. There is normal alignment of the vertebrae. The intervertebral disc spaces appe ar normal. Paravertebral soft tissues appear normal. Impression: No significant abnormalities noted. Reviewed, dictated and finalized at [facility]. Impression: No significant abnormalities noted.
--- NOTE | ~2023-11-01 | XR_ITS ---
Lumbosacral Spine: AP and lateral views Clinical History: Pain Findings: The normal lordotic curve is maintained. The vertebral bodies and posterior elements are i ntact. The intervertebral disc spaces are preserved. The sacroiliac joints are normally outlined. Impression: No significant abnormality. Reviewed, dictated and finalized at [facility]. Impression: No significant abnormality.
[2023-11-01 18:47] LABS: Hematocrit 47.8 % (37.0-47.0); Hemoglobin 15.6 g/dL (12.0-15.0); Mean Corpuscular HGB Conc 32.6 g/dl (32-36); Mean Corpuscular Hemoglobin 31.8 pg (26-34); Mean Corpuscular Volume 97.6 fl (80-100); Mean Platelet Volume 10.3 fl (7.4-10.4); Platelet Count Result 284 k/mm3 (150-375); Red Cell Distribution Width 12.8 % (11.5-14.5); White Blood Count 10.3 K/mm3 (4.5-10.0)
[2023-11-01 19:14] LABS: Erythrocyte Sedimentation Rate 12 mm/hr (0-20)
[2023-11-05 16:04] LABS: ANA Cascade Screen POSITIVE (NEGATIVE); Chromatin (Nucleosomal) Ab <1.0 NEG AI (<1.0 NEG); Chromatin Antibody Charge YES; DNA (ds) Antibody Charge YES; JO1 Antibody Charge YES; Jo-1 Antibody <1.0 NEG AI (<1.0 NEG); RNP Antibody <1.0 NEG AI (<1.0 NEG); RNP Antibody Charge YES; SCL70 Antibody Charge YES; SSA Antibody Charge YES; SSB Antibody Charge YES; Sjogren's Antibody (SS-B) <1.0 NEG AI (<1.0 NEG); Sm Antibody <1.0 NEG AI (<1.0 NEG); Sm Antibody Charge YES; Sm/RNP Antibody <1.0 NEG AI (<1.0 NEG); Sm/RNP Antibody Charge YES
== END 2023-11-01 11:57 | disposition home or self-care (01) ==
LOC: ANHBWCLAB 11:58
PROVIDERS: PCP Nurse Practitioner Adult Health; Visit Provider Nurse Practitioner Adult Health
DX: M54.9 Dorsalgia, unspecified (principal); M25.50 Pain in unspecified joint
CPT/HCPCS: 36415; 72070; 72100; 85027; 85652; 86038; 86225; 86235; 86364

== ENCOUNTER 2024-01-22 09:11 | Outpatient (CLI) | payer OTHER, SELFPAY ==
--- NOTE | ~2024-01-22 | XR_ITS ---
EXAMINATION: XR chest 2V DATE: 01/22/2024 09:25 INDICATION: Other chest pain. TECHNIQUE: Frontal and lateral views of the chest were obtained. COMPARISON: Chest 2 views 08/23/2023 FINDINGS: There is no pneumonia, pleural effusion, or pneumothorax. The heart size is normal. There i s a chronic compression fracture in mid thoracic spine. IMPRESSION: 1. No acute cardiopulmonary disease. Reviewed, dictated and finalized at location B.
[2024-01-22 20:39] LABS: Alanine Aminotransferase 26 U/L (6-35); Albumin Level 4.9 g/dL (3.5-5.1); Alkaline Phosphatase 67 U/L (38-126); Anion Gap 8 mmol/L (4-12); Aspartate Amino Transferase 54 U/L (14-36); Bilirubin,Total 0.6 mg/dL (0.2-1.3); Blood Urea Nitrogen 11 mg/dL (7-17); Calcium 9.9 mg/dL (8.4-10.2); Carbon Dioxide 30 mmol/L (22-30); Chloride 102 mmol/L (98-107); Cholesterol 235 mg/dL (0-200); Estimated Glomerular Filt Rate > 60; Glucose 90 mg/dL (65-110); HDL Direct 43 mg/dL; Hematocrit 47.9 % (37.0-47.0); Hemoglobin 15.5 g/dL (12.0-15.0); Mean Corpuscular HGB Conc 32.4 g/dl (32-36); Mean Corpuscular Hemoglobin 32.1 pg (26-34); Mean Corpuscular Volume 99.2 fl (80-100); Mean Platelet Volume 10.1 fl (7.4-10.4); Platelet Count Result 297 k/mm3 (150-375); Red Blood Count 4.83 M/mm3 (4.2-5.4); Red Cell Distribution Width 13.6 % (11.5-14.5); Sodium 140 mmol/L (137-145); Triglycerides 201 mg/dL (<150); White Blood Count 10.5 K/mm3 (4.5-10.0)
[2024-01-22 20:50] LABS: LDL Cholesterol Direct 127 mg/dL
[2024-01-22 21:10] LABS: Thyroid Stimulating Hormone 0.115 uIU/mL (0.465-4.680)
[2024-01-22 22:49] LABS: Vitamin D 25 Hydroxy 27.3 ng/mL
== END 2024-01-22 09:12 | disposition home or self-care (01) ==
PROVIDERS: PCP Nurse Practitioner Adult Health; Visit Provider Nurse Practitioner Adult Health
DX: R07.89 Other chest pain (principal); Z13.29 Encounter for screening for other suspected endocrine disorder; Z53.20 Procedure and treatment not carried out because of patient's decision for unspecified reasons; R79.89 Other specified abnormal findings of blood chemistry
CPT/HCPCS: 36415; 71046; 80053; 80061; 82306; 84443; 85027

== ENCOUNTER 2024-01-23 08:57 | Outpatient (CLI) | payer OTHER, SELFPAY ==
[2024-01-23 20:58] LABS: Free T4 Free Thyroxine 1.13 ng/mL (0.78-2.19)
[2024-01-25 14:29] LABS: Thyroid Peroxidase Antibodies <1 IU/mL (<9)
== END 2024-01-23 08:58 | disposition home or self-care (01) ==
PROVIDERS: PCP Nurse Practitioner Adult Health; Visit Provider Nurse Practitioner Adult Health
DX: R79.89 Other specified abnormal findings of blood chemistry (principal)
CPT/HCPCS: 36415; 84439; 86376

== ENCOUNTER 2024-02-26 12:13 | Outpatient (CLI) | payer OTHER, SELFPAY ==
--- NOTE | ~2024-02-26 | XR_ITS ---
Left Shoulder Technique: AP and scapular Y views were obtained. Clinical History: Pain Findings: No fracture or dislocation is seen. Osseous alignment is anatomic. The glenohumeral and acr omioclavicular joint spaces are preserved. Soft tissues are unremarkable. Impression: Unremarkable left shoulder radiographs. Reviewed, dictated and finalized at [facility]. ING MACHINE PILOT CAN ROUTER Impression: Unremarkable left shoulder radiographs.
--- NOTE | ~2024-02-26 | XR_ITS ---
[id number] Ordering provider: Evelyn Dumont APRN History: . M79.602 - Pain in left arm . Comparison: None. FINDINGS: VERTEBRAL BODIES: Minimal retrolisthesis at the level of C5-C6. Normal height and alignment. No visib le fracture or subluxation. The dens is intact. DISK SPACES: Slight narrowing of the disc C5-C6. Uncovertebral joint osteoarthritic changes at the sa me level. PARASPINOUS SOFT TISSUES: No prevertebral soft tissue swelling. IMPRESSION: No acute osseous abnormality cervical spine. Degenerative disc disease at the level of C5-C6. Reviewed, dictated and finalized at location A. LE WORKER
--- NOTE | ~2024-02-26 | XR_ITS ---
Left wrist Technique: PA and lateral views were obtained. Clinical History: Pain Findings: No acute fracture or dislocation is seen. Osseous alignment is anatomic. Joint spaces are p reserved. Soft tissues are unremarkable. Impression: Unremarkable left wrist radiographs. Reviewed, dictated and finalized at location M. AGE INSPECTOR Impression: Unremarkable left wrist radiographs.
== END 2024-02-26 12:14 | disposition home or self-care (01) ==
PROVIDERS: PCP Nurse Practitioner Adult Health; Visit Provider Nurse Practitioner Adult Health
DX: M25.512 Pain in left shoulder (principal); M79.602 Pain in left arm; M25.532 Pain in left wrist; M50.322 Other cervical disc degeneration at C5-C6 level
CPT/HCPCS: 72040; 73030; 73100

== ENCOUNTER 2024-06-04 09:48 | Outpatient (CLI) | payer OTHER, SELFPAY ==
--- NOTE | ~2024-06-04 | XR_ITS ---
3 VIEWS THORACIC SPINE Ordering provider: Evelyn Dumont APRN History: . M54.9 - Dorsalgia, unspecified . Comparison: November 01, 2023 FINDINGS: VERTEBRAL BODIES: Compression fracture of T7 which is unchanged from previous examination. Degenerati ve changes of the spine. DISK SPACES: Normal. SOFT TISSUES: Normal. IMPRESSION: Compression fracture in T7 which is unchanged from previous examination. Reviewed, dictated and finalized at location A.
--- NOTE | ~2024-06-04 | XR_ITS ---
3 VIEWS LUMBAR SPINE Ordering provider: Evelyn Dumont APRN History: . M54.9 - Dorsalgia, unspecified . Comparison: November 01, 2023 FINDINGS: VERTEBRAL BODIES: No visible fracture or subluxation. DISK SPACES: Normal. SOFT TISSUES: Normal. IMPRESSION: No acute osseous abnormality lumbar spine. Reviewed, dictated and finalized at location A.
--- NOTE | ~2024-06-04 | XR_ITS ---
XR sacrum coccyx min 2V Ordering provider: Evelyn Dumont APRN History: . M54.9 - Dorsalgia, unspecified . Comparison: None. FINDINGS: BONES: Highly suggestive fracture of the last segment of the coccyx. Clinical correlation for tendern ess in the area advised. JOINTS: The sacroiliac joint spaces shows mild sacroiliitis. SOFT TISSUES: Normal. IMPRESSION: Highly suggestive fracture of the last coccygeal segment.. Reviewed, dictated and finalized at location A.
--- OUTSIDE RECORDS SUMMARY | 2024-06-04 10:41 | XMS_ITS | Continuity of Care Document ---
Author Name [facility] Organization [facility] Care Team Providers Care Lambskin Trimmer Name Role Phone [facility] Unavailable Unavailable Problems Combined list of problems from Department of [facility] and [facility] facilities. It does not include entries that were removed or entered in error. 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 Skin irritation Active Condition Jul 14, 2013 Entered By: LISA ALVAREZ Comment: had a problem with developing blisters after an injuryJul 14, 2013 Entered By: LISA ALVAREZ Comment: never were able to come up with a diagnosis. [facility] Tobacco dependence syndrome Active Condition [facility] Immunizations Combined list of available immunizations from the Department of [facility] and [facility] facilities. Immunization Series Date Given Administered By Site Reaction Lot Number CVX Code Drug Car Dumper Status Comments Source TDAP 2008 115 complet ed JAYLA Dominguez Social History Combined list of available smoking, tobacco, and other social history from Department of Defense and Veterans Affairs facilities. Social History Type Response Date Comment Chinedu e Tobacco smoking status NHIS CURRENT TOBACCO USER 07/14/2013 [facility] History of tobacco use TOBACCO MEDS OFFE RED BUT DECLINED 07/14/2013 [facility]
--- OUTSIDE RECORDS SUMMARY | 2024-06-04 10:41 | XMS_ITS | Patient Health Summary ---
Author Organization [facility] Address [address] [address] Care Team Providers Care Furniture Refinisher Name Role Phone Kenia Avalos RN Unavailable [phone] Analisa Tirado Primary Care Provider Unavailab le Note from [facility],non-owned Affiliates and Associated Physician Practices is amultiple site organization consisting of ambulatory clinics and hospital sitesin [place], [place], [place] and [place]. This disclosure is being madepursuant to the Care Everywhere program and may not contain all information available regarding this patient. Last updated 17.[facility] Allergies * Adhesive Sensitivity(blisters) Medications * Be aware that medications may not be up to date on this document. Alwaysverify current medications with the patient. * Multiple Vitamin (MULTI-VITAMIN DAILY PO) Take by mouth. * Calcium Carbonate-Vitamin D (CALCIUM + D PO) Take by mouth. * Cholecalciferol (D3 SUPER STRENGTH) 2000 UNITS CAPS Take 2,000 Units by mouth once daily. * KRILL OIL OMEGA-3 PO Take by mouth. * B Uqfmvea-F-Axulj Acid (B COMPLEX + C TR) TBCR Take by mouth. * oxyCODONE-acetaminophen (PERCOCET) 5-325 MG tablet(Started 02/26/2014) Take 1-2 Tabs by mouth every 4 hours as needed. * docusate sodium (COLACE) 100 MG capsule(Started 02/26/2014) Take 1 Cap by mouth 2 times daily. * ibuprofen (MOTRIN) 600 MG tablet(Started 02/26/2014) Take 1 Tab by mouth every 6 hours as needed for Pain. Immunizations * INFLUENZA VACCINE, TRIV. (FLUZONE; FLULAVAL; FLUARIX; AFLURIA TRIVALENT; 6MO+), 0.5 ML (IIV3)(Given 02/26/2014) Social History Tobacco Use Types Packs/Day Years Used Date Smoking Tobacco: Former Cigarettes Q uit: 09/29/2013 Smokeless Tobacco: Never Tobacco Cessation:Counseling Given: No Alcohol Use Standard Drinks/Week Comments Yes 0.8 (1 standard drink = 0.6 oz p ure alcohol) Sex and Gender Information Value Date Recorded Sex Assigned at Not on file Gender Identity Not on file Sexual Orientation Not on file Last Filed Vital Signs Vital Sign Reading Time Taken Comments Blood Pressure 120/86 04/13/2014 10:13 AM LOADER HELPER Pulse 69 02/26/2014 11:48 AM LOADER HELPER Temperature 36.3 C (97.4 F) 02/26/2014 11:48 AM LOADER HELPER Respiratory Rate 18 02/26/2014 11:48 AM LOADER HELPER Oxygen Saturation 100% 02/26/2014 11:48 AM LOADER HELPER Inhaled Oxygen Concentration - - Weight 71.2 kg (157 lb) 04/13/2014 10:13 AM LOADER HELPER Height 161.3 cm (5' 3.5 ) 03/23/2014 11:43 AM CS T Body Mass Index 27.38 03/23/2014 11:43 AM LOADER HELPER Procedures * CARDIAC RHYTHM STRIP ORDER(Performed 02/28/2014) * URINALYSIS REFLEX MICROSCOPIC REFLEX CULTURE(Performed 02/25/2014) Performed for Urinary, incontinence, stress female * REMOVAL / REVISION SLING(Performed 02/25/2014) Performed for Cystocele, midline, Rectocele * CYSTOSCOPY (FLEXIBLE/RIGID)(Performed 02/25/2014) Performed for Cystocele, midline, Rectocele * EXCISION URETHRAL DIVERTICULUM (FEMALE)(Performed 02/25/2014) Performed for Cystocele, midline, Rectocele * COLPORRHAPHY ANTERIOR/POSTERIOR REPAIR(Performed 02/25/2014) Performed for Cystocele, midline, Rectocele * CBC W AUTO DIFFERENTIAL(Performed 02/18/2014) Performed for Preoperative examination, unspecified * URINALYSIS - POINT OF CARE (AMB) [facility](Performed 11/22/2013) * CULTURE URINE COMPREHENSIVE(Performed 10/03/2013) * URINALYSIS - POINT OF CARE (AMB) [facility](Performed 09/30/2013) Results * CARDIAC RHYTHM STRIP ORDER (02/28/2014 5:48 AM LOADER HELPER) Narrative 02/28/2014 5:48 AM LOADER HELPER Ordered by an unspecified provider. Scanned Document CARDIAC SERVICES ORD ERABLES * (ABNORMAL) URINALYSIS ROUTINE W/REFLEX TO CULTURE (02/25/2014 9:45 AM LOADER HELPER) Color UA Yellow Straw, Yellow, Dark Yellow 02/25/2014 10:[address] [facility] Clarity UA Clear 02/25/2014 10:[address] [facility] Specific Ferdinand UA 1.023 1.005 - 1.030 02/25/2014 10:[address] [facility] pH UA 5.5 5.0 - 8.0 pH 02/25/2014 10:[address] [facility] Protein UA Negative Negative 02/25/2014 10:[address] [facility] Blood UA Trace(A) Negative 02/25/2014 10:[address] [facility] Leukocyte UA Negative Negative 02/25/2014 10:[address] [facility] Nitrite UA Negative Negative 02/25/2014 10:[address] [facility] Glucose UA Negative Negative 02/25/2014 10:[address] [facility] Ketone UA Negative Negative 02/25/2014 10:[address] [facility] Bilirubin UA Negative Negative 02/25/2014 10:[address] [facility] Urobilinogen UA 0.2 0.1 - 1.0 EU/dL 02/25/2014 10:[address] [facility] WBC UA Auto 0-2 0-2, 2-5 #/hpf 02/25/2014 10:[address] [facility] RBC UA Auto 2-5 0-2, 2-5 #/hpf 02/25/2014 10:[address] [facility] Epithelial Cell UA Auto 2-5 0-2, 2-5 #/hpf 02/25/2014 10:[address] [facility] Reflex Status Culture not indicated 02/25/2014 10:[address] [facility] Urine URINE SPECIMEN COLLECTION, CATHETERIZED / Unknown Collection / Unknown 02/25/2014 9:45 AM LOADER HELPER 02/25/2014 10:15 AM [facility] Cosmo Alas MD LAB - URINALYSIS ORD ERABLES [facility] [address] [place] [address] * (ABNORMAL) CBC W AUTO DIFFERENTIAL (02/18/2014 10:03 AM LOADER HELPER) WBC 7.1 4.4 - 10.7 x10^9/L 02/18/2014 10:[address] [facility] RBC 4.47 3.80 - 5.20 x10^12/L 02/18/2014 10:[address] [facility] Hemoglobin 14.3 12.0 - 15.6 gm/dL 02/18/2014 10:[address] [facility] Hematocrit 40.3 35.9 - 45.5 % 02/18/2014 10:[address] [facility] MCV 90.2 80.7 - 98.3 fl 02/18/2014 10:[address] [facility] MCH 32.0 26.7 - 34.0 pg 02/18/2014 10:[address] [facility] MCHC 35.5 30.8 - 35.9 gm/dL 02/18/2014 10:[address] [facility] Platelet Count 272 153 - 416 x10^9/L 02/18/2014 10:[address] [facility] RDW-CV 12.2 12.1 - 14.9 % 02/18/2014 10:[address] [facility] MPV 10.0 9.4 - 12.9 fl 02/18/2014 10:[address] [facility] Neutrophils % 45.4 44.0 - 73.0 % 02/18/2014 10:[address] [facility] Lymphocytes % 43.9(H) 20.0 - 43.0 % 02/18/2014 10:[address] [facility] Monocytes % 8.3 5.0 - 13.0 % 02/18/2014 10:[address] [facility] Eosinophils % 1.4 0.0 - 6.0 % 02/18/2014 10:[address] [facility] Basophils % 0.6 0.0 - 2.0 % 02/18/2014 10:[address] [facility] Immature Granulocytes 0.4 0 - 1 % 02/18/2014 10:[address] [facility] Neutrophil Absolute 3.22 2.01 - 7.14 x10^9/L 02/18/2014 10:[address] [facility] Lymphocytes Absolute 3.11 1.07 - 3.94 x10^9/L 02/18/2014 10:[address] [facility] Monocytes Absolute 0.59 0.26 - 1.07 x10^9/L 02/18/2014 10:[address] [facility] Eosinophils Absolute 0.10 0 - 0.47 x10^9/L 02/18/2014 10:[address] [facility] Basophils Absolute 0.04 0 - 0.08 x10^9/L 02/18/2014 10:[address] [facility] Immature Granulocytes Absolute 0.03 0.00 - 0.06 x10^9/L 02/18/2014 10:[address] [facility] Blood BLOOD SPECIMEN / Unknown Venipuncture / Unknown 02/18/2014 10:03 AM LOADER HELPER 02/18/2014 10:31 AM LOADER HELPER Cosmo Alas MD LAB - HEMATOLOGY ORD ERABLES [facility] [address] [place], [place] [id number] * URINALYSIS - POINT OF CARE (AMB) [facility] (11/22/2013) Only the most recent of2 resultswithin the time period is included. Glucose UA neg [facility] Bilirubin UA POCT neg [facility] Ketones UA POCT neg [facility] Blood Urine POCT pos [facility] Protein UA neg [facility] Urobilinogen UA neg [facility] Nitrite UA neg [facility] WBC neg [facility] Urine specimen (specimen) 11/22/2013 Cosmo Alas MD LAB - POINT OF CARE ORDERABLES [facility] * CULTURE URINE COMPREHENSIVE (10/03/2013 7:00 AM CDT) Culture SEE NOTE [facility] ([facility]) Comment: CULTURE, URINE, SPECIAL MICRO NUMBER: [id number] TEST STATUS: FINAL SPECIMEN SOURCE: URINE SPECIMEN QUALITY: ADEQUATE RESULT: No Growth NO COLLECTION DATE RECEIVED. WE HAVE USED THE DATE THE SPECIMEN WAS RECEIVED BY THIS LABORATORY THE COLLECTION DATE. IF THIS IS INCORRECT, PLEASE CONTACT CLIENT SERVICES. PHONE NUMBER: [phone] Test Performed at: [facility] [address] ANGY CAIN MD Urine specimen (specimen) 10/03/2013 7:00 AM CDT 10/01/2013 5:14 AM CDT Cosmo Alas MD LAB - MICROBIOLOGY O RDERABLES [facility] ([facility]) Care Teams Furniture Refinisher Relationship Specialty Start Date End Date Analisa Tirado Update Information PCP - General 08/05/20 Kenia Avalos, RN Director Field Services 02/26/14
--- OUTSIDE RECORDS SUMMARY | 2024-06-04 10:41 | XMS_ITS | Continuity of Care Document ---
Author Organization [facility] Address [address] [place] [address] Phone Care Team Providers Care Hat Binder Name Role Phone Sudeep Jaime MD, FACS [...] Diagnoses Date Provider Providers Copied on Encounter [facility], [address] [place] [address] [address], [place], [place], [id number], [place] tel:[phone] [place] Viral Conjunctiviti s Follow Up (chief complaint) Diffuse episcleritis of both eyes 8 Yeni Sudeep. [address] [place] [address] [facility], [address], [place], [place], [address], . tel:[phone] Referring Provider: Doug Plascencia, [address] [facility] [address], [place], [address] . tel:[phone] Office/outpa [place]ient Visit, [facility] [id number] [place] [address] [address], [place], [place], [address], [place] tel:[phone] SEC [place] Professional WIE (chief complaint) No Information 8 Miguel Angel Camacho. [address] [facility], [place], [address], [place]. tel:[phone] Referring Provider: Chandra Bradshaw, [address], [place], [address] . tel:[phone] Office/outpa tient Visit, [facility], [address] [place] [address] [address], [place], [place], [address], [place] tel:[phone] SEC [place] Professional pain (chief complaint) No Information 6 Paige Artis. [address], [facility] [place], [address], [place]. tel:[phone] Referring Provider: Chandra Bradshaw, [address], [place], [address] . tel:[phone] Office/outpa tient Visit, [facility], [address] [place] [address] [address], [place], [place], [address], [place] tel:[phone] SEC [place] [address] WIE (chief complaint) No Information 1 Johnny Chávez. [address] [facility] [address], [address], [place], [place], [address], [place]. tel:[phone] Family History Family Member Type Diagnosis Age At Onset Sister Problem (finding) glaucoma Payers Payer name Insurance type Covered republican ID Marina ANNE (s) [id number] Social History Type Description Quantity Date Captured [...] weeks for follow up visit @ the [place] office or sooner if worse. Diffuse episcleritis [...] QID OD x 1 week. erx to [facility]. Patient understands if scar tissue does not [...]
--- OUTSIDE RECORDS SUMMARY | 2024-06-04 10:41 | XMS_ITS ---
Author Organization [facility] Address [address] [place] [address] Phone Care Team Providers Care Rn Home Health Name Role Phone CHEYANNE LARIOS M.D. Primary Care Provider Plan of Treatment No Plan of Treatment Recorded Assessments Includes: Assessments for all patient encounters No Assessments Recorded Medical Equipment - Implanted Devices Includes: Current and historical Devices No Medical Equipment Recorded Medications Administered Includes: Administered Medications in patient's chart No Administered Medications Recorded Results Includes: Results from 06/05/2023 through 06/04/2024 No Results Recorded For Specified Dates History of Present Illness History of Present Illness not supported for this document type No History of Present Illness Recorded Social History No Social History Recorded - Smoking Status Unknown Medical History Includes: Medical History in patient's chart No Medical History Recorded Family History Includes: Family History in patient's chart No Family History Recorded Review of Systems Review of Systems not supported for this document type No Review of Systems Recorded Mental Status No Mental Status Recorded Functional Status No Functional Status Recorded Physical Exam Physical Exam not supported for this document type No Physical Exam Recorded Clinical Notes Includes: Signed Clinical Notes starting from 04/14/2022 No Clinical Notes Recorded
--- OUTSIDE RECORDS SUMMARY | 2024-06-04 10:41 | XMS_ITS | Referral Summary ---
Author Organization [facility] Address [address] [place] [address] Care Team Providers Care Community Health Planning Director Name Role Phone Bailey Kenia Andrade RN Unavailable [phone] Analisa Tirado Primary Care Provider Unavailab le Source Comments [facility],non-owned Affiliates and Associated Physician Practices is amultiple site organization consisting of ambulatory clinics and hospital sitesin [place], [place], [place] and [place]. This disclosure is being madepursuant to the Care Everywhere program and may not contain all information available regarding this patient. Last updated 17.[facility] Allergies Active Allergy Reactions Criticality Noted Date Comments Adhesive Sensitivity 02/17/2014 blisters Medications * Be aware that medications may not be up to date on this document. Alwaysverify current medications with the patient. Medication Sig Dispensed Refills Start Date End Date Status Multiple Vitamin (MULTI-VITAMIN DAILY PO) Take by mouth. Active Calcium Carbonate-Vitamin D (CALCIUM + D PO) Take by mouth. Acti ve Cholecalciferol (D3 SUPER STRENGTH) 2000 UNITS CAPS Take 2,000 Units by mouth once daily. Active KRILL OIL OMEGA-3 PO Take by mouth. Active B Crlvktu-I-Fsnij Acid (B COMPLEX + C TR) TBCR Take by mouth. Active oxyCODONE-acetaminophe n (PERCOCET) 5-325 MG tablet Take 1-2 Tabs by mouth every 4 hours as needed. 40 Tab 0 02/26/2014 Active docusate sodium (COLACE) 100 MG capsule Take 1 Cap by mouth 2 times daily. 30 Cap 0 02/26/2014 Active ibuprofen (MOTRIN) 600 MG tablet Take 1 Tab by mouth every 6 hours as needed for Pain. 60 Tab 0 02/26/2014 Active Immunizations Name Administration Dates Next Due INFLUENZA VACCINE, TRIV. (FL UZONE; FLULAVAL; FLUARIX; AFLURIA TRIVALENT; 6MO+), 0.5 ML (IIV3) 02/26/2014 Social History Tobacco Use Types Packs/Day Years [...] Comments Blood Pressure 120/86 04/13/2014 10:13 AM PAEDODONTIST Pulse 69 02/26/2014 11:48 AM PAEDODONTIST Temperature 36.3 C (97.4 F) 02/26/2014 11:48 AM PAEDODONTIST Respiratory Rate 18 02/26/2014 11:48 AM PAEDODONTIST Oxygen Saturation 100% 02/26/2014 11:48 AM PAEDODONTIST Inhaled Oxygen Concentration - - Weight 71.2 kg (157 lb) 04/13/2014 10:13 AM PAEDODONTIST Height 161.3 cm (5' 3.5 ) 03/23/2014 11:43 AM CS T Body Mass Index 27.38 03/23/2014 11:43 AM PAEDODONTIST Functional Status Functional Status Response Date of Assess ment Is person deaf or have serious hearing difficult y? No 02/25/2014 Is person blind or have serious difficulty seein g? No 02/25/2014 Does person have serious dif ficulty walking/climbing stairs? No 02/25/2014 Does person have difficulty dressing/bathing? No 02/25/2014 Does person have difficulty doing errands alone? No 02/25/2014 Cognitive Status Response Date of Assessm ent Does person have difficulty concentrating/remembering/making decisions? No 02/25/2014 Plan of Treatment Not on file Advance Directives * Full Code (Latest Code Status on File) Date Activated Date Inactivated Comments 02/25/2014 12:34 PM 02/26/2014 3:55 PM * Full Code Date Activated Date Inactivated Comments 02/25/2014 9:20 AM 02/25/2014 12:34 PM Care Teams Community Health Planning Director Relationship Specialty Start Date End Date Analisa Tirado Update Information PCP - General 08/05/20 Kenia Avalos, RN Card Fixer 02/26/14
--- OUTSIDE RECORDS SUMMARY | 2024-06-04 10:41 | XMS_ITS ---
Care Plan - [facility] Created on: June 04, 2024 ANA KIDD : 1965 Sex: Female Author Organization [facility] Address [address] [place] [address] Phone Care Team Providers Care Shuttlecock Feather Trimmer Name Role Phone HARRIET Shipley, CHEYANNE Pelaez Primary Care Provider
--- OUTSIDE RECORDS SUMMARY | 2024-06-04 10:41 | XMS_ITS | Clinical Summary ---
Author Organization [facility] Address [address] [place] [address] Care Team Providers Care Band Sewer Name Role Phone Bailey Kenia Andrade RN Unavailable [phone] Analisa Tirado Primary Care Provider Unavailab le Source Comments [facility],non-owned Affiliates and Associated Physician Practices is amultiple site organization consisting of ambulatory clinics and hospital sitesin [place], [place], [place] and [place]. This disclosure is being madepursuant to the Care Everywhere program and may not contain all information available regarding this patient. Last updated 17.[facility] Allergies Active Allergy Reactions Criticality Noted Date [...] OMEGA-3 PO Take by mouth. Active B Nopifok-R-Roqhh Acid (B COMPLEX + C TR) TBCR [...] AFLURIA TRIVALENT; 6MO+), 0.5 ML (IIV3) 02/26/2014 Family History Medical History Relation Name Comments Hypertension Father CAD (Coronary Artery Disease) Maternal Grandfather Hypercholesterolemia Maternal Grandfather Hypertension Maternal Grandfather Diabetes Maternal Grandmother Hypertension Maternal Grandmother CAD (Coronary Artery Disease) Mother Depression Mother Diabetes Mother Hypertension Mother Relation Name Status Comments Father Maternal Grandfather Maternal Grandmother Mother Social History Tobacco Use Types Packs/Day Years [...] Comments Blood Pressure 120/86 04/13/2014 10:13 AM MATERIAL CHECKER Pulse 69 02/26/2014 11:48 AM MATERIAL CHECKER Temperature 36.3 C (97.4 F) 02/26/2014 11:48 AM MATERIAL CHECKER Respiratory Rate 18 02/26/2014 11:48 AM MATERIAL CHECKER Oxygen Saturation 100% 02/26/2014 11:48 AM MATERIAL CHECKER Inhaled Oxygen Concentration - - Weight 71.2 kg (157 lb) 04/13/2014 10:13 AM MATERIAL CHECKER Height 161.3 cm (5' 3.5 ) 03/23/2014 11:43 AM CS T Body Mass Index 27.38 03/23/2014 11:43 AM MATERIAL CHECKER Plan of Treatment Health Maintenance Due Date Last Done Comments COLOGUARD (AGES 45-75) - COL ON CA SCREENING [address] COLONOGRAPHY - COLON CA SCREENING 1965 FIT - COLON CA SCREENING 1965 FLEX SIG - COLON CA SCREENING 1965 LIPID TESTING 1965 PAP SMEAR 1967 HIV SCREENING 1982 HEPATITIS C SCREENING 03/14/1985 DTAP/TDAP/TD VACCINES (1 - Tdap) 1986 HEPATITIS B VACCINE (1 of 3 - 19+ 3-dose series) 1986 PNEUMOCOCCAL VACCINE 50+ (1 of 1 - PCV) 2017 ZOSTER VACCINE (1 of 2) 2017 MAMMOGRAM 11/03/2021 11/04/2019, 11/04/2019 COVID-19 VACCINE (1 - 2023-2 5 season) 2023 INFLUENZA VACCINE (#1) 2023 02/26/2014 DEPRESSION SCREENING 03/26/2024 COLONOSCOPY - COLON CA SCREENING 02/06/2033 02/06/2023 Colorectal Cancer Screening 02/06/2033 HIB VACCINE Aged Out No longer eligi ble based on patient's age to complete this topic HPV VACCINE Aged Out No longer eligi ble based on patient's age to complete this topic MENINGOCOCCAL (Group B) VACCINE SHARED DECISION-MAKING Aged Out No longer eligible based on patient's age to complete this topic MENINGOCOCCAL GROUPS A/C/Y/W VACCINE Aged Out No longer eligible b ased on patient's age to complete this topic PNEUMOCOCCAL VACCINE Aged Out No long er eligible based on patient's age to complete this topic Advance Directives * Full Code (Latest Code Status on File) Date Activated Date Inactivated Comments 02/25/2014 12:34 PM 02/26/2014 3:55 PM * Full Code Date Activated Date Inactivated Comments 02/25/2014 9:20 AM 02/25/2014 12:34 PM Care Teams Band Sewer Relationship Specialty Start Date End Date Analisa Tirado Update Information PCP - General 08/05/20 Kenia Avalos, RN Casualty Claim Adjuster 02/26/14
--- OUTSIDE RECORDS SUMMARY | 2024-06-04 10:41 | XMS_ITS | Clinical Summary ---
Author Organization [facility] Address [address] [place] [address] Phone Care Team Providers Care Criminal Justice Department Chair Name Role Phone CHEYANNE LARIOS M.D. Primary Care Provider Reason for Visit and Chief Complaint GENERAL OFFICE VISIT Plan of Treatment No Plan of Treatment Recorded Assessments Includes: Assessments from this encounter No Assessments Recorded Medical Equipment - Implanted Devices Includes: Current Devices No Medical Equipment Recorded Medications Administered Includes: Administered Medications from this encounter No Administered Medications Recorded Results Includes: Results discussed during this encounter No Results Recorded For Specified Dates History of Present Illness Includes: History of Present Illness from this encounter No History of Present Illness Recorded Social History No Social History Recorded - Smoking Status Unknown Medical History Includes: Medical History addressed during this encounter No Medical History Recorded Family History Includes: Family History addressed during this encounter No Family History Recorded Review of Systems Includes: Review of Systems from this encounter No Review of Systems Recorded Mental Status Includes: Mental Status from this encounter No Mental Status Recorded Functional Status Includes: Functional Status from this encounter No Functional Status Recorded Physical Exam Includes: Physical Exam from this encounter No Physical Exam Recorded Clinical Notes Includes: Clinical Notes from this encounter No Clinical Notes Recorded
== END 2024-06-04 09:49 | disposition home or self-care (01) ==
LOC: ANHBWCIMG 09:49
PROVIDERS: PCP Nurse Practitioner Adult Health; Visit Provider Nurse Practitioner Adult Health
DX: S22.060D Wedge compression fracture of T7-T8 vertebra, subsequent encounter for fracture with routine healing (principal); X58.XXXD Exposure to other specified factors, subsequent encounter; M54.9 Dorsalgia, unspecified
CPT/HCPCS: 72070; 72100; 72220

== ENCOUNTER 2024-06-25 13:27 | Outpatient (CLI) | payer OTHER, SELFPAY ==
--- NOTE | ~2024-06-25 | XR_ITS ---
XR hip LT min 2V 06/25/2024 13:51 INDICATION: Left hip pain PROCEDURE: 2 views left hip COMPARISON: No prior studies for comparison. FINDINGS: Fracture, dislocation or subluxation is not identified. The soft tissues appear within norm al limits. No foreign bodies are identified. IMPRESSION: 1: NO ACUTE BONE OR JOINT ABNORMALITY IDENTIFIED. Reviewed, dictated and finalized at location A.
--- NOTE | ~2024-06-25 | XR_ITS ---
HISTORY: M54.16 - Radiculopathy, lumbar region COMPARISON: 06/04/2024 TECHNIQUE: 2 views of the sacrum and coccyx were performed FINDINGS: No acute or subacute fracture. Joint spaces are preserved and alignment is maintained. Soft tissues are unremarkable without radiopaque foreign body or significant calcification. Age-appropriate mineralization. No cortical irregularity is identified within the last coccygeal segment, as identified on previous e xamination, likely resolved. IMPRESSION: As above. Reviewed, dictated and finalized at location A. IMPRESSION: As above.
--- NOTE | ~2024-06-25 | XR_ITS ---
Lumbosacral Spine: AP and lateral views Clinical History: Pain Findings: The normal lordotic curve is maintained. The vertebral bodies and posterior elements are i ntact. The intervertebral disc spaces are preserved. There is moderate facet arthropathy throughout the lumbar spine. The sacroiliac joints are normally outlined. Impression: Moderate facet arthropathy in the lumbar spine. Reviewed, dictated and finalized at location . Impression: Moderate facet arthropathy in the lumbar spine.
--- OUTSIDE RECORDS SUMMARY | 2024-06-25 14:46 | XMS_ITS | Clinical Summary ---
Author Organization [facility] Address [address] [place] [address] Phone Care Team Providers Care Adult Parole Officer Name Role Phone CHEYANNE LARIOS M.D. Primary [...]
--- OUTSIDE RECORDS SUMMARY | 2024-06-25 14:46 | XMS_ITS ---
Author Organization [facility] Address [address] [place] [address] Phone Care Team Providers Care Residential Roofer Name Role Phone CHEYANNE LARIOS M.D. Primary Care Provider Plan of Treatment No Plan of Treatment Recorded Assessments Includes: Assessments for all patient encounters No Assessments Recorded Medical Equipment - Implanted Devices Includes: Current and historical Devices No Medical Equipment Recorded Medications Administered Includes: Administered Medications in patient's chart No Administered Medications Recorded Results Includes: Results from 06/26/2023 through 06/25/2024 No Results Recorded For Specified Dates History [...]
--- OUTSIDE RECORDS SUMMARY | 2024-06-25 14:46 | XMS_ITS | Clinical Summary ---
Author Organization [facility] [address] Address [address] [place] [address] Phone Care Team Providers Care Lead Warehouse Associate Name Role Phone Santi Basilio MD Primary Care Provider [phone] Allergies Active Allergy Reactions Criticality Noted Date Comments Adhesive Tape-Silicones Other (See comments) Low blisters Latex Rash Medium Neomycin Itching Low 09/06/2019 Medications ALPRAZolam (XANAX) 0.25 mg tablet Take 0.25 mg by mouth nightly as needed for anxiety Active progesterone (PROMETRIUM) 100 mg capsule TK ONE C PO QHS WITH A MEAL THAT CONTAINS SOME FAT IN THE CLIFF 10/17/2019 Active cyclobenzaprine (FLEXERIL) 10 mg tablet Take 1 tablet (10 mg total) by mouth 3 (three) times a day as needed for muscle spasms 12 tablet 07/13/2021 Active HYDROcodone-marla taminophen (NORCO) 5-325 mg per tabletIndicatio ns:Pain Take 1 tablet by mouth every 6 (six) hours as needed for pain 12 tablet 10/06/2021 Active alendronate (FOSAMAX) 70 mg tablet Take 1 tablet (70 mg total) by mouth every 7 days 11/02/2023 Active methocarbamoL (ROBAXIN) 500 mg tablet Take 1 tablet (500 mg total) by mouth 2 (two) times a day 20 tablet 02/14/2024 Active ketorolac (TORADOL) 10 mg tablet Take 1 tablet (10 mg total) by mouth every 6 (six) hours as needed for pain 20 tablet 02/14/2024 Active Active Problems Problem Noted Date Diagnosed Date Family history of colon cancer 11/14/2022 Encounter for screening colonoscopy 11/14/2022 Right foot sprain, initial encounter 09/06/2019 Tobacco abuse counseling 07/16/2015 Overview (06/29/2016): Current smoker Knee pain 07/16/2015 Overview (06/29/2016): Knee pain Osteopenia 07/16/2015 Overview (06/29/2016): Osteopenia Resolved Problems Problem Noted Date Diagnosed Date Resolved Date Ankle pain 07/23/2015 10/31/2016 Overview (06/29/2016): Ankle pain Immunizations Immunization Administration Dates Next Due Tdap 10/02/2016 Surgical History Surgery Date Site/Laterality Comments HYSTERECTOMY OOPHORECTOMY COLONOSCOPY 02/06/2023 Medical History Medical History Date Comments Hx Other Medical Right knee arth roscopic partial medial meniscectom; Comments: JJC 08/16/2015 - Ankle pain 07/23/2015 Ankle pain Fibrocystic breast Smoking Family History Medical History Relation Name Comments Other Other Relation Name Status Comments Other Social History Tobacco Use Types Packs/Day Years Used Date Smoking Tobacco: Every Day Cigarettes Smokeless Tobacco: Never Tobacco Cessation:Ready to Q uit: Not Asked; Counseling Given: Not Answered Alcohol Use Standard Drinks/Week Comments Yes 0 (1 standard drink = 0.6 oz pur e alcohol) special occassions Personal Safety Answer Date Recorded Have you ever been in or are you currently in a harmful physical or emotional relationship or is someone making you feel afraid or unsafe? Denies 02/14/2024 Comments No Sex and Gender Information Value Date Recorded Sex Assigned at Not on file Legal Sex Female 9:15 AM ASSISTANT CONSTRUCTION SUPERINTENDENT Gender Identity Not on file Sexual Orientation Not on file Obstetrics History Para Term AB IAB SAB Ectopic Multiple Livin g Live Births 3 3 3 Date Outcome GA Total Labor Labor/2nd/3rd Weight Sex Type Anes PTL Kirstie A1 A5 Name Clin Term Term Term Last Filed Vital Signs Vital Sign Reading Time Taken Comments Blood Pressure 140/89 02/14/2024 3:47 PM ASSISTANT CONSTRUCTION SUPERINTENDENT Pulse 82 02/14/2024 3:47 PM ASSISTANT CONSTRUCTION SUPERINTENDENT Temperature 37.1 C (98.8 F) 02/14/2024 2:04 PM ASSISTANT CONSTRUCTION SUPERINTENDENT Respiratory Rate 18 02/14/2024 2:04 PM ASSISTANT CONSTRUCTION SUPERINTENDENT Oxygen Saturation 95% 02/14/2024 3:47 PM ASSISTANT CONSTRUCTION SUPERINTENDENT Inhaled Oxygen Concentration - - Weight 59 kg (130 lb) 02/14/2024 2:04 PM ASSISTANT CONSTRUCTION SUPERINTENDENT Height 161.3 cm (5' 3.5 ) 02/05/2024 8:52 AM ASSISTANT CONSTRUCTION SUPERINTENDENT Body Mass Index 22.67 02/05/2024 8:52 AM ASSISTANT CONSTRUCTION SUPERINTENDENT Plan of Treatment Health Maintenance Due Date Last Done Comments Depression Screening 1965 Hepatitis C Screening 1967 Hepatitis B Screening 1985 Regular Well Visit/Exam 18-64 1985 Pneumococcal vaccine <65 (1 of 2 - PCV) 1986 Zoster Vaccine (1 of 2) 1986 Breast Cancer Screening-Mammogram 11/03/2020 020 Lung Cancer Screening 02/01/2024 01/31/2023 Influenza Vaccine (Season Ended) 2024 01/04/20 16, 02/26/2014 DTaP/Tdap/Td Vaccine (3 - Td or Tdap) 10/02/202612/2016, 11/25/2008 Colon Cancer Screening-Colonoscopy 02/06/20332022 Colon Cancer Screening-CT Colonography Discontinued Colon Cancer Screening-DNA Stool Discontinued 02/07/20 23 Colon Cancer Screening-FIT Discontinued 02/06/2023, Colon Cancer Screening-Sigmoidoscopy Discontinued 01/24 Procedures Procedure Name Priority Date/Time Associated Diagnosis Comments COLONOSCOPY 02/06/2023 8:04 AM ASSISTANT CONSTRUCTION SUPERINTENDENT CT LUNG CANCER SCREENING Schedule Routine, Read Routine (OP Routine) 01/31/2023 9:28 AM ASSISTANT CONSTRUCTION SUPERINTENDENT Nicotine dependence with current use SCREENING MAMMOGRAM BILATERAL W TRAV Schedule Routine, Read Routine (OP Routine) 11/04/2019 4:08 PM CDT Encounter for screening mammogram for malignant neoplasm of breast from Last 3 Months or Most Recently Relevant to Health Maintenance Results * COLONOSCOPY (02/06/2023 8:04 AM ASSISTANT CONSTRUCTION SUPERINTENDENT) Anatomical Region Laterality Modality Other Narrative Procedure Note Chuck Maldonado MD - 02/06/2023 8:04 AM CST [facility] Patient Name: Luciana Nathan Procedure Date: 02/06/2023 8:04 AM Date of : 1965 Admit Type: Outpatient Age: 57 Gender: Female Attending MD: Chuck Maldonado M.D. Room: [facility] ENDOSCOPY ROOM 1 Note Status: Finalized Patient Profile: This is a 57 year old female. Great aunt had colon cancer. She had episodes of blood in the stool with constipation. Procedure: Colonoscopy Indications: Screening for colorectal malignant neoplasm, Thisis the patient's first colonoscopy Referring MD: Santi Basilio M.D. Providers: Chuck Maldonado M.D. Impression: - Two 5 to 8 mm polyps in the ascending colon,removed with a cold snare. Resected and retrieved. - Three 5-6 mm polyps in the sigmoid colon, removed with a cold snare. Resected and retrieved. - Diverticulosis in the sigmoid colon. - Internal hemorrhoids. Recommendation: - Await pathology results. - Repeat colonoscopy in 2 years for surveillance. - Fiber supplements daily. MiraLax one or 2 tablespoonfuls in a glass of water daily. - Call our office to schedule sigmoidoscopy and banding of internal hemorrhoids. Medicines: Monitored Anesthesia Care Complications: No immediate complications. Estimated Blood Loss: Estimated blood loss: none. Procedure: Pre-Anesthesia Assessment: - Prior to the procedure, a History and Physicalwas performed, and patient medications and allergieswere reviewed. The patient's tolerance of previous anesthesia was also reviewed. The risks andbenefits of the procedure and the sedation options and risks were discussed with the patient. All questions were answered, and informed consent was obtained. Prior Anticoagulants: The patient has taken noanticoagulant or antiplatelet agents. ASA Grade Assessment: Per anesthesia note and evaluation. After reviewing the risks and benefits, the patient was deemed in satisfactory condition to undergo the procedure. The benefits, risks and alternatives of theprocedure and sedation were discussed and informed consentwas obtained. All questions were answered. Please referto the signed informed consent document in the medical record. The bowel preparation used was Miralax and bisacodyl tablets via split dose instruction. The scope was passed under direct vision. The Pediatric Colonoscope PCF-H190L [id number] was introducedthrough the anus and advanced to the the cecum, identifiedby appendiceal orifice and ileocecal valve. Thequality of the bowel preparation was good. Bowel prep was administered using a split dose. Findings: The perianal and digital rectal examinations were normal. The cecum appeared normal. Two semi-sessile polyps were found in the ascending colon. The polyps were 5 to 8 mm in size. These polyps were removed with a cold snare. Resection and retrieval were complete. The descending colon and transverse colon appeared normal. 3 sessile polyps noted in the proximal and distal sigmoid colon,polyps were 5 mm to 6 mm in size and sessile. Polyps were removed with cold snare technique. Resection and retrieval were complete. Many medium-mouthed diverticula were found in the sigmoid colon. Internal hemorrhoids were found during retroflexion. The hemorrhoids were medium-sized. Electronically signed by Chuck Maldonado M.D. Chuck Maldonado M.D. 02/06/2023 9:55:48 AM Number of Addenda: 0 Note Initiated On: 02/06/2023 8:04 AM Procedure Code(s): --- Professional --- 11597, Colonoscopy, flexible; with removal of tumor(s), polyp(s), or other lesion(s) by snare technique Diagnosis Code(s): --- Professional --- Z12.11, Encounter for screening for malignant neoplasm of colon K64.8, Other hemorrhoids D12.2, Benign neoplasm of ascending colon D12.5, Benign neoplasm of sigmoid colon K57.30, Diverticulosis of large intestine without perforation orabscess without bleeding CPT copyright 2020 [employer]. All rights reserved. The codes documented in this report are preliminary and upon entertainment agent reviewmay be revised to meet current compliance requirements. Recognized by the [employer] for promoting quality in endoscopy Chuck Maldonado MD ENDOSCOPY PROCEDURES Final Result * CT Lung Cancer Screening (01/31/2023 9:28 AM ASSISTANT CONSTRUCTION SUPERINTENDENT) Anatomical Region Laterality Modality Chest N/A Computed Tomogra phy 01/31/2023 11:2 2 AM ASSISTANT CONSTRUCTION SUPERINTENDENT Narrative 01/31/2023 11:53 AM ASSISTANT CONSTRUCTION SUPERINTENDENT EXAM DESCRIPTION: CT LUNG CANCER SCREENING REASON FOR STUDY: Screening CT of the chest in a current smoker with a 38 pack year smoking history. Additional history: None. TECHNIQUE: Low dose CT scan of the chest was performed without intravenous contrast using helical scanning technique. The exam extends from the lung apices through the lung bases. Automatic exposure control was used as a dose optimization technique. NOTE: This study was performed for the specific purposes of lung cancer screening and is not an alternative to diagnostic chest CT. RADIATION DOSE: CT dose index volume (CTDIvol) = 1.0 mGy COMPARISON: None available FINDINGS: SMOKING RELATED LUNG DISEASE: Mild emphysema. LUNG NODULES: Tree-in-bud opacities are seen throughout the right middle lobe, lingula, and anterior aspect of the right upper lobe as well as mild ground-glass and tree-in-bud opacities seen posteriorly in the right upper lobe. These areas are associated with mucous plugging and mild bronchiectasis. CORONARY ARTERY CALCIFICATION: None OTHER: Chest wall appears normal. The upper abdomen appears normal. No lymphadenopathy. No suspicious osseous lesion. There is a wedge compression deformity in the midthoracic spine which appears chronic. 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 Recommendation: Low dose Screening CT of chest in 12 months. THIS IS AN ELECTRONICALLY VERIFIED FINAL REPORT 01/31/2023 11:53 AM - Electronically signed by Neal Mtz M.D. KN: DENILSON Report ID: [id number] Reading Location: [place] [address] Procedure Note Neal Mtz MD - 01/31/2023 EXAM DESCRIPTION: CT LUNG CANCER SCREENING REASON FOR STUDY: Screening CT of the chest in a current smoker with a38 pack year smoking history. Additional history: None. TECHNIQUE: Low dose CT scan of the chest was performed without intravenous contrast using helical scanning technique. The exam extends from the lung apices through the lung bases. Automatic exposure control was used as adose optimization technique. NOTE: This study was performed for the specific purposes of lung cancer screening and is not an alternative to diagnostic chest CT. RADIATION DOSE: CT dose index volume (CTDIvol) = 1.0 mGy COMPARISON: None available FINDINGS: SMOKING RELATED LUNG DISEASE: Mild emphysema. LUNG NODULES: Tree-in-bud opacities are seen throughout the right middle lobe, lingula, and anterior aspect of the right upper lobe as well as mild ground-glass and tree-in-bud opacities seen posteriorly in the right upper lobe. These areas are associated with mucous plugging and mild bronchiectasis. CORONARY ARTERY CALCIFICATION: None OTHER: Chest wall appears normal. The upper abdomen appears normal. No lymphadenopathy. No suspicious osseous lesion. There is a wedgecompression deformity in the midthoracic spine which appears chronic. IMPRESSION: Mucous plugging, tree-in-bud opacities, and bronchiectasis in theanterior aspects of the lungs likely atypical mycobacterial infection, typicallyMAI Lung-RADS category 2: Benign appearance or behavior. Recommendation: Low dose Screening CT of chest in 12 months. THIS IS AN ELECTRONICALLY VERIFIED FINAL REPORT 01/31/2023 11:53 AM - Electronically signed by Neal Mtz M.D. KN: DENILSON Report ID: [id number] Reading Location: [id number] Evelyn Dumont NP IMG CT PROCEDURES Final Result * (ABNORMAL) Screening Mammogram Bilateral W Trav (11/04/2019 4:08 PM CDT) Anatomical Region Laterality Modality Breast Bilateral Mammography 11/05/2019 9:55 AM CDT Impressions 11/05/2019 10:01 AM CDT 1. Left breast focal asymmetry, lower outer quadrant. Recommend left diagnostic mammogram with possible ultrasound for further evaluation. 2. No mammographic evidence of malignancy in the right breast. Recommend screening mammography of the right breast in one year. BI-RADS: 0 - Additional imaging evaluation is necessary. The patient has been or will be contacted. Electronically signed by: Lenny Jim M.D. Narrative 11/05/2019 10:01 AM CDT EXAMINATION: SCREENING MAMMOGRAM BILATERAL W TRAV ORDERING HEALTHCARE PROVIDER: SELF SCREENING MAMMOGRAM HISTORY: Routine screening mammography. COMPARISON: None available, new baseline TECHNIQUE: CC and MLO views of the bilateral breasts were obtained with digital technique using breast tomosynthesis with C view. Computer aided detection was utilized. FINDINGS: DENSITY: There are scattered fibroglandular elements in the bilateral breasts. BREASTS: There is a focal asymmetry in the lower outer left breast, middle depth. There are no suspicious masses, suspicious calcifications, or other suspicious findings in the right breast. us Self Screening Mammogram IMG MAMMO PROCEDURES Fi nal Result from Last 3 Months or Most Recently Relevant to Health Maintenance [place] [facility] [place] [id number] [place], [place] [address]O [facility] O Advance Directives For more information, please contact: [phone] * Full Code (Latest Code Status on File) Date Activated Date Inactivated Comments 02/06/2023 8:07 AM 02/06/2023 2:35 PM * Full Code Date Activated Date Inactivated Comments 02/06/2023 8:07 AM 02/06/2023 8:07 AM Care Teams Lead Warehouse Associate Relationship Specialty Start Date End Date Santi Basilio MD PCP - General 03/04/21
--- OUTSIDE RECORDS SUMMARY | 2024-06-25 14:46 | XMS_ITS | Clinical Summary ---
Author Organization [facility] Address [address] [address] Phone Care Team Providers Care Dolly Pusher Name Role Phone Marquis Reed Primary Care Provider [phone] Allergies Active Allergy Reactions Criticality Noted Date Comments Neomycin Rash 12/27/2017 Medications Glucosamine-MSM- Hyaluronic Acd (JO[employer] HEALTH PO) Take by mouth. Active Multiple Vitamin (MULTI-VITAMIN PO) Take by mouth. Active Calcium Carbonate-Vit D-Min (CALCIUM 1200 PO) Take by mouth. Active Cholecalciferol (VITAMIN D-3 PO) Take by mouth. Active KRILL OIL PO Take by mouth. Active Probiotic Product (PROBIOTIC-10 ULTIMATE PO) Take by mouth. Active B COMPLEX-C PO Take by mouth. Active Active Problems Problem Noted Date Diagnosed Date Neutrophilia 12/28/2017 Polycythemia 12/27/2017 Monocytosis 12/27/2017 Family History Medical History Relation Name Comments Hypertension Brother Stroke Maternal Grandfather Diabetes Maternal Grandmother Diabetes Mother Hypertension Mother Hypertension Sister Relation Name Status Comments Brother Maternal Grandfather Maternal Grandmother Mother Sister Social History Tobacco Use Types Packs/Day Years Used Date Smoking Tobacco: Every Day Cigarettes 1 32 Smokeless Tobacco: Never Tobacco Cessation:Ready to Q uit: No; Counseling Given: Yes Alcohol Use Standard Drinks/Week Comments Yes 0 (1 standard drink = 0.6 oz pur e alcohol) occasionally Comments Unknown Sex and Gender Information Value Date Recorded Sex Assigned at Not on file Legal Sex Female 9:15 PM CDT Gender Identity Not on file Sexual Orientation Not on file Last Filed Vital Signs Vital Sign Reading Time Taken Comments Blood Pressure 143/81 12/27/2017 2:51 PM CDT Pulse 76 12/27/2017 2:51 PM CDT Temperature 36.7 C (98.1 F) 12/27/2017 2:51 PM CDT Respiratory Rate 18 12/27/2017 2:51 PM CDT Oxygen Saturation 98% 12/27/2017 2:51 PM CDT Inhaled Oxygen Concentration - - Weight 68.6 kg (151 lb 4.8 oz) 12/27/2017 2:51 P M CDT Height 161.3 cm (5' 3.5 ) 12/27/2017 2:51 PM CDT Body Mass Index 26.38 12/27/2017 2:51 PM CDT Plan of Treatment Health Maintenance Due Date Last Done Comments Hepatitis C Virus (HCV) Screening 1965 TdaP Immunization 1965 SARS-COV-2 Immunization (#1) 1972 Hepatitis B Immunization (1 of 3 - 19+ 3-dose series) 1986 Pneumococcal Immunization (5 0+ years) (1 of 2 - PCV) 1986 Zoster Immunization (1 of 2) 1986 Colonoscopy 2012 Colorectal Cancer Screening 2012 Cologuard 2017 Immunochemical Fecal Occult Blood 2017 Influenza Immunization (#1) 2023 01/04/2016 Respiratory Syncytial Virus (RSV) Immunization (Adult) (1 - 1-dose 75+ series) 2042 Meningococcal Immunization (ACWY) Aged Out No longer eligible based on patient's age to complete this topic Rotavirus Immunization Aged Out No lo nger eligible based on patient's age to complete this topic Care Teams Dolly Pusher Relationship Specialty Start Date End Date Marquis Reed DO [address] [id number] PCP - General Family Medicine 12/19/17
--- OUTSIDE RECORDS SUMMARY | 2024-06-25 14:46 | XMS_ITS | Clinical Summary ---
Author Organization [facility] Address [address] [place] [address] Care Team Providers Care Veterinary Medical Officer Name Role Phone Bailey Kenia Andrade RN Unavailable [phone] Analisa Tirado Primary Care Provider Unavailab le Source Comments [facility],non-owned Affiliates and Associated Physician Practices is amultiple site organization consisting of ambulatory clinics and hospital sitesin [place], [place], [place] and [place]. This disclosure is being madepursuant to the Care Everywhere program and may not contain all information available regarding this patient. Last updated 17.[facility] Allergies Active Allergy Reactions Criticality Noted [...] OMEGA-3 PO Take by mouth. Active B Iosiumc-U-Wegyz Acid (B COMPLEX + C TR) TBCR [...] Comments Blood Pressure 120/86 04/13/2014 10:13 AM FIELD SUPERINTENDENT Pulse 69 02/26/2014 11:48 AM FIELD SUPERINTENDENT Temperature 36.3 C (97.4 F) 02/26/2014 11:48 AM FIELD SUPERINTENDENT Respiratory Rate 18 02/26/2014 11:48 AM FIELD SUPERINTENDENT Oxygen Saturation 100% 02/26/2014 11:48 AM FIELD SUPERINTENDENT Inhaled Oxygen Concentration - - Weight 71.2 kg (157 lb) 04/13/2014 10:13 AM FIELD SUPERINTENDENT Height 161.3 cm (5' 3.5 ) 03/23/2014 11:43 AM CS T Body Mass Index 27.38 03/23/2014 11:43 AM FIELD SUPERINTENDENT Plan of Treatment Health Maintenance Due [...] 9:20 AM 02/25/2014 12:34 PM Care Teams Veterinary Medical Officer Relationship Specialty Start Date End Date Analisa Tirado Update Information PCP - General 08/05/20 Kenia Avalos, RN Pinion Staker 02/26/14
--- OUTSIDE RECORDS SUMMARY | 2024-06-25 14:46 | XMS_ITS | Referral Summary ---
Author Organization [facility] 1 [employer] Address [address] [place] [address] Phone Care Team Providers Care Senior Talent Management Consultant Name Role Phone Santi Basilio MD Primary Care Provider +1 [phone] Allergies Active Allergy Reactions Criticality Noted Date [...] Immunization Administration Dates Next Due Tdap 10/02/2016 Social History Tobacco Use Types Packs/Day Years [...] on file Legal Sex Female 9:15 AM CHIEF OF SERVICE Gender Identity Not on file Sexual Orientation Not on file Last Filed Vital Signs Vital Sign Reading Time Taken Comments Blood Pressure 140/89 02/14/2024 3:47 PM CHIEF OF SERVICE Pulse 82 02/14/2024 3:47 PM CHIEF OF SERVICE Temperature 37.1 C (98.8 F) 02/14/2024 2:04 PM CHIEF OF SERVICE Respiratory Rate 18 02/14/2024 2:04 PM CHIEF OF SERVICE Oxygen Saturation 95% 02/14/2024 3:47 PM CHIEF OF SERVICE Inhaled Oxygen Concentration - - Weight 59 kg (130 lb) 02/14/2024 2:04 PM CHIEF OF SERVICE Height 161.3 cm (5' 3.5 ) 02/05/2024 8:52 AM CHIEF OF SERVICE Body Mass Index 22.67 02/05/2024 8:52 AM CHIEF OF SERVICE Plan of Treatment Not on file Procedures Procedure Name Priority Date/Time Associated Diagnosis Comments COLONOSCOPY 02/06/2023 8:[address] LUNG CANCER SCREENING Schedule Routine, Read Routine (OP Routine) 01/31/2023 9:28 AM CHIEF OF SERVICE Nicotine dependence with current use SCREENING MAMMOGRAM BILATERAL W TRAV Schedule Routine, Read Routine (OP Routine) 11/04/2019 4:08 PM CDT Encounter for screening mammogram for malignant neoplasm of breast from Last 3 Months or Most Recently Relevant to Health Maintenance Results * COLONOSCOPY (02/06/2023 8:04 AM CHIEF OF SERVICE) Anatomical Region Laterality Modality Other Narrative Procedure Note Chuck Maldonado MD - 02/06/2023 8:[address] [facility] Patient Name: Luciana Nathan Procedure Date: 02/06/2023 8:04 AM Date of : 1965 Admit Type: Outpatient Age: 57 Gender: Female Attending MD: Chuck Maldonado M.D. Room: [facility] END[facility]COPY ROOM 1 Note Status: Finalized Patient [...] under direct vision. The Pediatric Colonoscope PCF-H190L [id number] was introducedthrough the anus and advanced to [...] 8:04 AM Procedure Code(s): --- Professional --- 06433, Colonoscopy, flexible; with removal of tumor(s), polyp(s), or other lesion(s) by snare technique Diagnosis Code(s): --- Professional --- Z12.11, Encounter for screening for malignant neoplasm of colon K64.8, Other hemorrhoids D12.2, Benign neoplasm of ascending colon D12.5, Benign neoplasm of sigmoid colon K57.30, Diverticulosis of large intestine without perforation orabscess without bleeding CPT copyright 2020 [employer]. All rights reserved. The codes documented in this report are preliminary and upon human resources mgr reviewmay be revised to meet current compliance requirements. Recognized by the [employer] for promoting quality in endoscopy Chuck Maldonado MD ENDOSCOPY PROCEDURES Final Result * CT Lung Cancer Screening (01/31/2023 9:28 AM CHIEF OF SERVICE) Anatomical Region Laterality Modality Chest N/A Computed Tomogra phy 01/31/2023 11:2 2 AM CHIEF OF SERVICE Narrative 01/31/2023 11:53 AM CHIEF OF SERVICE EXAM DESCRIPTION: CT LUNG CANCER SCREENING REASON [...] Neal Mtz M.D. KN: DENILSON Report ID: [id number] Reading Location: [id number] Procedure Note Neal Mtz MD - 01/31/2023 [...] Neal Mtz M.D. KN: DENILSON Report ID: [id number] Reading Location: [place] [address] Evelyn Dumont NP IM CT PROCEDURES Final Result * (ABNORMAL) Screening [...] Most Recently Relevant to Health Maintenance Insurance [id number] [place] [address] [facility] Advance Directives For more information, please contact: [phone] * Full Code (Latest Code Status on File) Date Activated Date Inactivated Comments 02/06/2023 8:07 AM 02/06/2023 2:35 PM * Full Code Date Activated Date Inactivated Comments 02/06/2023 8:07 AM 02/06/2023 8:07 AM Care Teams Senior Talent Management Consultant Relationship Specialty Start Date End Date Santi Basilio MD PCP - General 03/04/21
--- OUTSIDE RECORDS SUMMARY | 2024-06-25 14:46 | XMS_ITS | Continuity of Care Document ---
Author Name [facility] Organization [facility] Care Team Providers Care Content Strategist Name Role Phone [facility] Unavailable Unavailable Problems Combined list of problems from Department of [facility] and [facility] facilities. It does not include entries that were removed or entered in error. 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 Skin irritation Active Condition Jul 14, 2013 Entered By: LISA ALVAREZ Comment: had a problem with developing blisters after an injuryJul 14, 2013 Entered By: LISA ALVAREZ Comment: never were able to come up with a diagnosis. [facility] Tobacco dependence syndrome Active Condition [facility] Immunizations Combined list of available immunizations from the Department of [facility] and Veterans [facility] facilities. Immunization Series Date Given Administered By Site Reaction Lot Number CVX Code Drug Recordak Operator Status Comments Source TDAP 2008 115 complet ed JAYLA Dominguez Social History Combined list of available smoking, tobacco, and other social history from Department of Defense and Veterans Affairs facilities. Social History Type Response Date Comment Chinedu perez Tobacco smoking status NHIS CURRENT TOBACCO USER 07/14/2013 [facility] History of tobacco use TOBACCO MEDS OFFE RED BUT DECLINED 07/14/2013 [facility]
--- OUTSIDE RECORDS SUMMARY | 2024-06-25 14:46 | XMS_ITS ---
Care Plan - [facility] Created on: June 25, 2024 ANA KIDD : 1965 Sex: Female Author Organization [facility] Address [address] [place] [address] Phone Care Team Providers Care Geophysical Engineer Name Role Phone HARRIET Shipley, CHEYANNE Pelaez Primary Care Provider
--- OUTSIDE RECORDS SUMMARY | 2024-06-25 14:46 | XMS_ITS | Continuity of Care Document ---
Author Organization [facility] Address [address] [place] [address] Phone Care Team Providers Care Pear Picker Name Role Phone Sudeep Jaime MD, FACS [...] Diagnoses Date Provider Providers Copied on [facility] [address] [place] [address] [address], [place], [place], [address], [place] tel:[phone] SEC [place] Viral Conjunctiviti s Follow Up (chief complaint) Diffuse episcleritis of both eyes [address] Yeni Sudeep. [address] [place] [address] [employer] [facility], [address], [place], [place], [address], . tel:[phone] Referring Provider: Duog Plascencia, [address] [facility] [address], [place], [address] . tel:[phone] Office/outpa tient Visit, [facility], [address] [place] [address] [address], [place], [place], [address], [place] tel:[phone] SEC [place] Professional WIE (chief complaint) No Information 8 Miguel Angel Camacho. [address], [address] [place], [place], [address], [place]. tel:[phone] Referring Provider: Chandra Bradshaw, [address], [place], [address] . tel:[phone] Office/outpa tient Visit, [facility], [address] [place] [address] [employer] [address], [place], [place], [address], [place] tel:[phone] SEC [place] Professional pain (chief complaint) No Information 6 Paige Artis. [address], [facility] [place] [place], [place], [address], [place]. tel:[phone] Referring Provider: Chandra Bradshaw, [address], [place], [address] . tel:[phone] Office/outpa tient Visit, [facility], [address] [place] [address] [address], [place], [place], [address], [place] tel:[phone] SEC [address] WIE (chief complaint) No Information 1 Johnny Chávez. [address] [facility], [address], [place], [place], [address], [place]. tel:[phone] Family History Family Member Type Diagnosis Age At Onset Sister Problem (finding) glaucoma Payers Payer name Insurance type Covered constitution party ID Marina ANNE (s) [id number] Social History Type Description Quantity Date Captured [...] weeks for follow up visit @ the [place] office or sooner if worse. Diffuse episcleritis of both eyes - Pt instructed to use At's Related to Diffuse episcleritis of both eyes Impression/Plan - Se caitlin Conjunctivitis OU- Likely [...] weeks for follow up Follow up - 1-2 week s for viral conjunctivitis follow up Impression/Plan - Di scussed diagnosis in detail [...] to Hordeolum externum of right lower eyelid Follow up - PRN Assessments Type Assessment Date assessment Diffuse episcleritis of both eye s Patient Care Teams Name Effective Dates (start - stop) Status Members No Information
== END 2024-06-25 13:28 | disposition home or self-care (01) ==
LOC: ANHBWCIMG 13:29
PROVIDERS: PCP Nurse Practitioner Adult Health; Visit Provider Nurse Practitioner Adult Health
DX: M25.552 Pain in left hip (principal); M47.26 Other spondylosis with radiculopathy, lumbar region
CPT/HCPCS: 72100; 72220; 73502

== ENCOUNTER 2024-08-14 10:43 | Emergency (ER) | payer OTHER, SELFPAY ==
--- OUTSIDE RECORDS SUMMARY | 2024-08-14 10:45 | XMS_ITS | Continuity of Care Document ---
Author Name [facility] Organization [facility] Care Team Providers Care Patient Placement Coordinator Name Role Phone [facility] Unavailable Unavailable Problems Combined list of problems from Department of [facility] and [facility] facilities. It does not include entries that were removed or entered in error. 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 [facility] Tobacco dependence syndrome Active Condition [facility] Immunizations Combined list of available immunizations from the Department of [facility] and Veterans Affairs facilities. Immunization Series Date Given Administered By Site Reaction Lot Number CVX Code Drug Software Applications Developer Status Comments Source TDAP 2008 115 complet ed JAYLA Dominguez Social History Combined list of available smoking, tobacco, and other social history from Department of Defense and Veterans Affairs facilities. Social History Type Response Date Comment Chinedu e Tobacco smoking status NHIS CURRENT TOBACCO USER 07/14/2013 [facility] History of tobacco use TOBACCO MEDS OFFE RED BUT DECLINED 07/14/2013 [facility]
--- OUTSIDE RECORDS SUMMARY | 2024-08-14 10:45 | XMS_ITS | Clinical Summary ---
Author Organization [facility] Address [address] [place] [address] [address] Phone Care Team Providers Care Oscillograph Technician Name Role Phone Marquis Reed Primary Care Provider [phone] Allergies Active Allergy Reactions Criticality Noted Date [...] age to complete this topic Care Teams Oscillograph Technician Relationship Specialty Start Date End Date Marquis Reed DO [address] [address] PCP - General Family Medicine 12/19/17
--- OUTSIDE RECORDS SUMMARY | 2024-08-14 10:46 | XMS_ITS | Clinical Summary ---
Author Organization [facility] 1 [employer] Address [address] [place] [address] Phone Care Team Providers Care Airborne Operations Superintendent Name Role Phone Santi Basilio MD Primary Care Provider [phone] [phone] Allergies Active Allergy Reactions Criticality Noted Date [...] on file Legal Sex Female 9:15 AM WASTE BALER Gender Identity Not on file Sexual Orientation Not on file Obstetrics History Para Term AB IAB SAB Ectopic Multiple Livin g Live Births 3 3 3 Date Outcome GA Total Labor Labor/2nd/3rd Weight Sex Type Anes PTL Kirstie A1 A5 Name Clin Term Term Term Last Filed Vital Signs Vital Sign Reading Time Taken Comments Blood Pressure 140/89 02/14/2024 3:47 PM WASTE BALER Pulse 82 02/14/2024 3:47 PM WASTE BALER Temperature 37.1 C (98.8 F) 02/14/2024 2:04 PM WASTE BALER Respiratory Rate 18 02/14/2024 2:04 PM WASTE BALER Oxygen Saturation 95% 02/14/2024 3:47 PM WASTE BALER Inhaled Oxygen Concentration - - Weight 59 kg (130 lb) 02/14/2024 2:04 PM WASTE BALER Height 161.3 cm (5' 3.5 ) 02/05/2024 8:52 AM WASTE BALER Body Mass Index 22.67 02/05/2024 8:52 AM WASTE BALER Plan of Treatment Health Maintenance Due Date [...] Associated Diagnosis Comments COLONOSCOPY 02/06/2023 8:[address] LUNG CANCER SCREENING Schedule Routine, Read Routine (OP Routine) 01/31/2023 9:28 AM WASTE BALER Nicotine dependence with current use SCREENING MAMMOGRAM BILATERAL W TRAV Schedule Routine, Read Routine (OP Routine) 11/04/2019 4:08 PM CDT Encounter for screening mammogram for malignant neoplasm of breast from Last 3 Months or Most Recently Relevant to Health Maintenance Results * COLONOSCOPY (02/06/2023 8:04 AM WASTE BALER) Anatomical Region Laterality Modality Other Narrative Procedure Note Chuck Maldonado MD - 02/06/2023 8:[address] [facility] Patient Name: Luciana Nathan Procedure Date: 02/06/2023 8:04 AM Date of : 1965 Admit Type: Outpatient Age: 57 Gender: Female Attending MD: Chuck Maldonado M.D. Room: [facility] END[facility] ROOM 1 Note Status: Finalized Patient [...] under direct vision. The Pediatric Colonoscope PCF-H190L [id number] was introducedthrough the anus and advanced to [...] 8:04 AM Procedure Code(s): --- Professional --- 25653, Colonoscopy, flexible; with removal of tumor(s), polyp(s), or other lesion(s) by snare technique Diagnosis Code(s): --- Professional --- Z12.11, Encounter for screening for malignant neoplasm of colon K64.8, Other hemorrhoids D12.2, Benign neoplasm of ascending colon D12.5, Benign neoplasm of sigmoid colon K57.30, Diverticulosis of large intestine without perforation orabscess without bleeding CPT copyright 2020 [employer]. All rights reserved. The codes documented in this report are preliminary and upon senior sales compensation analyst reviewmay be revised to meet current compliance requirements. Recognized by the [employer] for promoting quality in endoscopy Chuck Maldonado MD ENDOSCOPY PROCEDURES Final Result * CT Lung Cancer Screening (01/31/2023 9:28 AM WASTE BALER) Anatomical Region Laterality Modality Chest N/A Computed Tomogra phy 01/31/2023 11:2 2 AM WASTE BALER Narrative 01/31/2023 11:53 AM WASTE BALER EXAM DESCRIPTION: CT LUNG CANCER SCREENING REASON [...] Neal Mtz M.D. KN: DENILSON Report ID: [id number] Reading Location: [place] [address] Procedure Note Neal Mtz MD - 01/31/2023 [...] Neal Mtz M.D. KN: DENILSON Report ID: [id number] Reading Location: [id number] Evelyn Dumont NP IMG CT PROCEDURES Final [...] Most Recently Relevant to Health Maintenance [facility] [place] [place] [id number] [place], [place] [address]O [facility] O Advance Directives For more information, please contact: [phone] * Full Code (Latest Code Status on File) Date Activated Date Inactivated Comments 02/06/2023 8:07 AM 02/06/2023 2:35 PM * Full Code Date Activated Date Inactivated Comments 02/06/2023 8:07 AM 02/06/2023 8:07 AM Care Teams Airborne Operations Superintendent Relationship Specialty Start Date End Date Santi Basilio MD PCP - General 03/04/21
--- OUTSIDE RECORDS SUMMARY | 2024-08-14 10:46 | XMS_ITS | Referral Summary ---
Author Organization [facility] [address] Address [address] [place] [address] Phone Care Team Providers Care Account Development Associate Name Role Phone Santi Basilio MD Primary Care Provider +1 [phone] Allergies Active Allergy Reactions Criticality Noted Date [...] on file Legal Sex Female 9:15 AM ORDER TRACER Gender Identity Not on file Sexual Orientation Not on file Last Filed Vital Signs Vital Sign Reading Time Taken Comments Blood Pressure 140/89 02/14/2024 3:47 PM ORDER TRACER Pulse 82 02/14/2024 3:47 PM ORDER TRACER Temperature 37.1 C (98.8 F) 02/14/2024 2:04 PM ORDER TRACER Respiratory Rate 18 02/14/2024 2:04 PM ORDER TRACER Oxygen Saturation 95% 02/14/2024 3:47 PM ORDER TRACER Inhaled Oxygen Concentration - - Weight 59 kg (130 lb) 02/14/2024 2:04 PM ORDER TRACER Height 161.3 cm (5' 3.5 ) 02/05/2024 8:52 AM ORDER TRACER Body Mass Index 22.67 02/05/2024 8:52 AM ORDER TRACER Plan of Treatment Not on file Procedures Procedure Name Priority Date/Time Associated Diagnosis Comments COLONOSCOPY 02/06/2023 8:[address] LUNG CANCER SCREENING Schedule Routine, Read Routine (OP Routine) 01/31/2023 9:28 AM ORDER TRACER Nicotine dependence with current use SCREENING MAMMOGRAM BILATERAL W HUGH Schedule Routine, Read Routine (OP Routine) 11/04/2019 4:08 PM CDT Encounter for screening mammogram for malignant neoplasm of breast from Last 3 Months or Most Recently Relevant to Health Maintenance Results * COLONOSCOPY (02/06/2023 8:04 AM ORDER TRACER) Anatomical Region Laterality Modality Other Narrative Procedure Note Chuck Maldonado MD - 02/06/2023 8:04 AM CST [facility] Patient Name: Lucinaa Nathan Procedure Date: 02/06/2023 8:04 AM Date of : 1965 Admit Type: Outpatient Age: 57 Gender: Female Attending MD: Chuck Maldonado M.D. Room: [facility] ENDOSCOPY ROOM 1 Note Status: Finalized Patient [...] under direct vision. The Pediatric Colonoscope PCF-H190L [id number] was introducedthrough the anus and advanced to [...] 8:04 AM Procedure Code(s): --- Professional --- 56724, Colonoscopy, flexible; with removal of tumor(s), polyp(s), or other lesion(s) by snare technique Diagnosis Code(s): --- Professional --- Z12.11, Encounter for screening for malignant neoplasm of colon K64.8, Other hemorrhoids D12.2, Benign neoplasm of ascending colon D12.5, Benign neoplasm of sigmoid colon K57.30, Diverticulosis of large intestine without perforation orabscess without bleeding CPT copyright 2020 [place]. All rights reserved. The codes documented in this report are preliminary and upon parking lot laborer reviewmay be revised to meet current compliance requirements. Recognized by the [place] for promoting quality in endoscopy Chuck Maldonado MD ENDOSCOPY PROCEDURES Final Result * CT Lung Cancer Screening (01/31/2023 9:28 AM ORDER TRACER) Anatomical Region Laterality Modality Chest N/A Computed Tomogra phy 01/31/2023 11:2 2 AM ORDER TRACER Narrative 01/31/2023 11:53 AM ORDER TRACER EXAM DESCRIPTION: CT LUNG CANCER SCREENING REASON [...] Neal Mtz M.D. KN: DENILSON Report ID: [id number] Reading Location: [id number] Procedure Note Neal Mtz MD - 01/31/2023 [...] Neal Mtz M.D. KN: DENILSON Report ID: [id number] Reading Location: [place] [address] Evelyn Dumont NP IM CT PROCEDURES Final Result * (ABNORMAL) Screening Mammogram Bilateral W Hugh (11/04/2019 4:08 PM CDT) Anatomical Region Laterality [...] AM CDT EXAMINATION: SCREENING MAMMOGRAM BILATERAL W HUGH ORDERING HEALTHCARE PROVIDER: SELF SCREENING MAMMOGRAM HISTORY: [...] Most Recently Relevant to Health Maintenance Insurance [id number] [place] [address] [facility] Advance Directives For more information, please contact: [phone] * Full Code (Latest Code Status on File) Date Activated Date Inactivated Comments 02/06/2023 8:07 AM 02/06/2023 2:35 PM * Full Code Date Activated Date Inactivated Comments 02/06/2023 8:07 AM 02/06/2023 8:07 AM Care Teams Account Development Associate Relationship Specialty Start Date End Date Santi Basilio MD PCP - General 03/04/21
--- OUTSIDE RECORDS SUMMARY | 2024-08-14 10:46 | XMS_ITS | Clinical Summary ---
Author Organization [facility] Address [address] [place] [address] Care Team Providers Care Floor Layer Helper Name Role Phone Bailey Kenia Andrade RN Unavailable Analisa Tirado Primary Care Provider Unavailab le Source Comments [facility],non-owned Affiliates and Associated Physician Practices is amultiple site organization consisting of ambulatory clinics and hospital sitesin [place], [place], [place] and [place]. This disclosure is being madepursuant to the Care Everywhere program and may not contain all information available regarding this patient. Last updated 17.[facility] Allergies Active Allergy Reactions Criticality Noted Date Comments Adhesive Sensitivity 02/17/2014 blisters Medications * Be aware that medications may not be up to date on this document. Alwaysverify current medications with the patient. Multiple Vitamin (MULTI-VITAMIN DAILY PO) Take by mouth. Active Calcium Carbonate-Vitami n D (CALCIUM + D PO) Take by mouth. Active Cholecalciferol (D3 SUPER STRENGTH) 2000 UNITS CAPS Take 2,000 Units by mouth once daily. Active KRILL OIL OMEGA-3 PO Take by mouth. Active B Yxoydlp-L-Jjjzg Acid (B COMPLEX + C TR) TBCR Take by mouth. Active oxyCODONE-acetam inophen (PERCOCET) 5-325 MG tablet Take 1-2 Tabs by mouth every 4 hours as needed. 40 Tab 0 02/26/2014 Active docusate sodium (COLACE) 100 MG capsule Take 1 Cap by mouth 2 times daily. 30 Cap 0 02/26/2014 Active ibuprofen (MOTRIN) 600 MG tablet Take 1 Tab by mouth every 6 hours as needed for Pain. 60 Tab 0 02/26/2014 Active Immunizations Immunization Administration Dates Next Due INFLUENZA VACCINE, TRIV. [...] drink = 0.6 oz p ure alcohol) Comments No Sex and Gender Information Value Date Recorded Sex Assigned at Not on file Legal Sex Female 8:01 AM FAST FOOD SERVER Gender Identity Not on file Sexual Orientation Not on file Last Filed Vital Signs Vital Sign Reading Time Taken Comments Blood Pressure 120/86 04/13/2014 10:13 AM FAST FOOD SERVER Pulse 69 02/26/2014 11:48 AM FAST FOOD SERVER Temperature 36.3 C (97.4 F) 02/26/2014 11:48 AM FAST FOOD SERVER Respiratory Rate 18 02/26/2014 11:48 AM FAST FOOD SERVER Oxygen Saturation 100% 02/26/2014 11:48 AM FAST FOOD SERVER Inhaled Oxygen Concentration - - Weight 71.2 kg (157 lb) 04/13/2014 10:13 AM FAST FOOD SERVER Height 161.3 cm (5' 3.5 ) 03/23/2014 11:43 AM CS T Body Mass Index 27.38 03/23/2014 11:43 AM FAST FOOD SERVER Plan of Treatment Health Maintenance Due Date Last Done Comments MADELYN (AGES 45-75) - COL ON CA SCREENING [...] VACCINE (1 - 2023-2 5 season) 2023 DEPRESSION SCREENING 03/26/2024 INFLUENZA VACCINE (Season Ended) 2024 02/26/2014 COLONOSCOPY - COLON CA SCREENING 02/06/2033 02/06/2023 [...] on patient's age to complete this topic Insurance [facility] ADMINISTRATION ADMINISTRATION Advance Directives * Full Code (Latest Code Status on File) Date Activated Date Inactivated Comments 02/25/2014 12:34 PM 02/26/2014 3:55 PM * Full Code Date Activated Date Inactivated Comments 02/25/2014 9:20 AM 02/25/2014 12:34 PM Care Teams Floor Layer Helper Relationship Specialty Start Date End Date Analisa Tirado Update Information PCP - General 08/05/20 Kenia Avalos, RN Blower Operator 02/26/14
--- OUTSIDE RECORDS SUMMARY | 2024-08-14 10:46 | XMS_ITS | Continuity of Care Document ---
Author Organization [facility] Address [address] [place] [address] Phone Care Team Providers Care Physician Practice Consultant Name Role Phone Sudeep Jaime MD, FACS [...] Diagnoses Date Provider Providers Copied on Encounter [facility], [address] [place] [address] [address], [place], [place], [address], [place] tel:[phone] SEC [place] Viral Conjunctiviti s Follow Up (chief complaint) Diffuse episcleritis of both eyes 8 Yeni Sudeep. [address] [place] [address], [address], [place], [place], [address], . tel:[phone] Referring Provider: Doug Plascencia, [address] [facility] [address], [place], [address] . tel:[phone] Office/outpa tient Visit, [facility], [address] [place] [address] [address], [place], [place], [address], [place] tel:[phone] SEC [place] Professional WIE (chief complaint) No Information 8 Miguel Angel Camacho. [address], [address] [place], [address], [place]. tel:[phone] Referring Provider: Chandra Bradshaw, [address] [facility] [address], [place], [address] . tel:[phone] Office/outpa tient Visit, [facility], [address] [place] [address] [address], [place], [place], [address], [place] tel:[phone] SEC [place] Professional pain (chief complaint) No Information 6 Paige Artis. [address] [facility], [address] [place], [address], [place]. tel:[phone] Referring Provider: Chandra Bradshaw, [address], [place], [address] . tel:[phone] Office/outpa tient Visit, [facility], [address] [place] [address] [address], [place], [place], [address], [place] tel:[phone] SEC [address] No Information 1 Johnny Chávez. [address] [facility], [address], [place], [place], [address], . tel:[phone] Family History Family Member Type Diagnosis Age At Onset Sister Problem (finding) glaucoma Payers Payer name Insurance type Covered libertarian ID Marina ANNE (s) [id number] Social History Type Description Quantity Date Captured [...] weeks for follow up visit @ the [place] office or sooner if worse. Diffuse episcleritis [...]
--- OUTSIDE RECORDS SUMMARY | 2024-08-14 10:51 | XMS_ITS | Continuity of Care Document ---
Author Name [facility] Organization [facility] Care Team Providers Care Aerospace Technician Name Role Phone [facility] Unavailable Unavailable Problems Combined list of problems from Department of [facility] and [facility] facilities. It does not include entries that were removed or entered in error. Problem Status Onset Date Problem Type Date of Resolution Comments Source Cystocele (SNOMED CT [id number]) Active Condition [facility] Prolapse of vaginal vault after hysterectomy [...] of available immunizations from the Department of [facility] and Veterans Affairs facilities. Immunization Series Date Given Administered By Site Reaction Lot Number CVX Code Drug Motor Vehicle Operator Road Supervisor Status Comments Source TDAP 2008 115 complet ed JAYLA Dominguez Social History Combined list of available smoking, tobacco, and other social history from Department of Defense and Veterans Affairs facilities. Social History Type Response Date Comment Chinedu e Tobacco smoking status NHIS CURRENT TOBACCO USER 07/14/2013 [facility] History of tobacco use TOBACCO MEDS OFFE RED BUT DECLINED 07/14/2013 [facility]
--- OUTSIDE RECORDS SUMMARY | 2024-08-14 10:51 | XMS_ITS | Continuity of Care Document ---
Author Organization [facility] Address [address] [place] [address] Phone Care Team Providers Care Devulcanizer Operator Name Role Phone Sudeep Jaime MD, FACS [...] Diagnoses Date Provider Providers Copied on [facility]counter [facility], [address] [place] [address] [address], [place], [place], [address], [place] tel:[phone] SEC [place] Viral Conjunctiviti s Follow Up (chief complaint) Diffuse episcleritis of both eyes 8 Yeni Sudeep. [address] [place] [address], [address], [place], [place], [address], . tel:[phone] Referring Provider: Doug Plascencia, [address] [facility] [address], [place], [address] . tel:[phone] Office/outpa tient Visit, [facility], [address] [place] [address] [address], [place], [place], [address], [place] tel:[phone] SEC [place] Professional WIE (chief complaint) No Information 8 Miguel Angel Camacho. [address] [facility], [address] [place], [address], [place]. tel:[phone] Referring Provider: Chandra Bradshaw, [address] [address], [place], [address] . tel:[phone] Office/outpa tient Visit, [facility], [address] [place] [address] [address], [place], [place], [address], [place] tel:[phone] SEC [place] Professional pain (chief complaint) No Information 6 Paige Artis. [address] [facility], [address], [address], [place]. tel:[phone] Referring Provider: Chandra Bradshaw, [address], [place], [address] . tel:[phone] Office/outpa tient Visit, [facility], [address] [place] [address] [address], [place], [place], [address], [place] tel:[phone] SEC [address] No Information 1 Johnny Chávez. [address] [facility], [address], [place], [place], [address], . tel:[phone] Family History Family Member Type Diagnosis Age At Onset Sister Problem (finding) glaucoma Payers Payer name Insurance type Covered republican ID Marina ANNE (s) [id number] Social History Type Description Quantity Date Captured [...] weeks for follow up visit @ the [place] office or sooner if worse. Diffuse episcleritis [...]
[2024-08-14 10:55] VITALS: BP 112/46; PULSE 62; RESP 16; TEMP 36.9; O2SAT 100
--- NOTE | 2024-08-14 11:33 | ED.SKABFB ---
HPI - Skin/Abscess/Foreign Bdy General Chief complaint: Skin/Abscess/Foreign Body Stated complaint: rash on neck and back Time Seen by Provider: 08/14/24 11:20 Source: patient, RN notes reviewed and old records reviewed Mode of arrival: ambulatory Limitations: no limitations History of Present Illness HPI narrative: 59 year old female who presents to [facility] care with rash noted to the back of her neck and to the right side of her back on Sunday. Patient reports that she has been working in her yard and she also did use some Bengay to her back for stiffness on Sunday. Patient reports that rash is itchy and does have some burning to it. Patient reports that she has been applying Caladryl lotion to rash and has been taking Benadryl orally for itching. MD complaint: rash Onset (ago): day(s) (2) Location: neck and back Severity scale (1-10): 3 Quality: burning and pruritic Treatments prior to arrival: Benadryl and other (Caladryl lotion) Related Data Allergies Allergy/AdvReac Type Severity Reaction Status Date / Time neomycin Allergy Unknown Swelling Verified 08/14/24 11:04 of the Eye Review of Systems Review of Systems: CONSTITUTIONAL: Denies fever, chills, or sweats. CARDIOVASCULAR: Denies chest pain, palpitations, or edema. RESPIRATORY: Denies cough or dyspnea. SKIN: Reports red raised itchy rash to the back of her neck and to the right side of lower back no pustule formation MUSCULOSKELETAL: Denies joint pain or myalgia. NEUROLOGIC: Denies headache, numbness, or weakness. All systems reviewed & are unremarkable except as noted in HPI and below PMFSH Past Medical History Medical History PNA (pneumonia) Compression fracture of T7 vertebra Cystocele with rectocele surgical repair Osteopenia Bacterial sinusitis Bronchitis Surgical History Surgical History H/O right knee surgery History of removal of both ovaries Family History Family History Mother Diabetes mellitus Hypertension Family history of chronic obstructive pulmonary disease Family history of cardiovascular disease Grandparent Diabetes mellitus Cerebrovascular accident Father Cerebrovascular accident Social History Social History Smoking packs per day: 1 Smoking cigarettes per day: 20.0 Years smoked: 34 Smoking pack-years: 34.00 Smoking status: Former smoker Additional smoking assessment comments: quit one month ago Alcohol intake: never Substance use: never Lack of Transportation: No Lack of Food: Never True Current Housing: I Have Housing Concerned About Future Housing: No Difficulty Paying Gas/Electric Bills: No Difficulty Paying for Meds: No Currently Unemployed: No Education: Associate Degree Difficulty w/ Childcare or Family Care: No Living arrangements: with family Gender identity (if verbalized by the patient): Female Comments At time of signature, agree with nursing past medical, surgical, social and family history. There is no relevant family history pertinent to the presenting complaint Exam Narrative: GENERAL: Well-appearing, well-nourished, and in no acute distress. HEAD: Normocephalic, atraumatic. EYES: PERRLA, conjunctivae clear, and EOMI. ENT: Mucous membranes moist. Oropharynx without edema, erythema or lesions. NECK: Supple. No lymphadenopathy CHEST: Clear to auscultation. No respiratory distress. no cough noted SAO2 100% on room air HEART: Regular rate and rhythm. SKIN: Warm, dry.? Patches of red irregular shaped rash to neck and right side of back, no pustule formation, is itchy and turner NEURO:? Alert and oriented x3. PSYCH: Normal mood and affect Course Course Emergency Course: Patient is aware of diagnosis, understands and agrees to treatment plan.? Anticipatory guidance given.? Patient agrees to follow-up as directed and is aware of reasons to seek care at the emergency department. Portions of this record may have been created with voice recognition software Level of Care: Express Care Visit Vital Signs Vital signs: Vital Signs Temperature 36.9 C 08/14/24 10:55 Pulse Rate 62 08/14/24 10:55 Respiratory Rate 16 08/14/24 10:55 Blood Pressure 112/46 L 08/14/24 10:55 Pulse Oximetry 100 08/14/24 10:55 Oxygen Delivery Room Air 08/14/24 10:55 Temperature 36.9 C 08/14/24 10:55 Pulse Rate 62 08/14/24 10:55 Respiratory Rate 16 08/14/24 10:55 Blood Pressure 112/46 L 08/14/24 10:55 Pulse Oximetry 100 08/14/24 10:55 Oxygen Delivery Room Air 08/14/24 10:55 Reviewed MDM - Skin/Abscess/Foreign Bdy MDM Narrative Medical decision making narrative: Does not appear at this time to be erythema multiforme, bullous, SJS, TEN; no evidence at this time to suggest RMSF, endocarditis or Lyme disease; patient looks well, nontoxic and is tolerating oral intake; no neurologic signs or symptoms; no headache, photophobia or neck pain; afebrile; appropriate for initial outpatient treatment; discussed the importance of follow-up, patient agrees; question, viral exanthema, contact dermatitis, allergic dermatitis, eczema, urticaria, [ xx ]. No soft palate or uvula edema, no tongue, lip edema or other mucosal involvement, no respiratory compromise, no stridor, no wheezing, no wheezing, no history of syncope, no hypotension, no nausea, vomiting, or diarrhea.? Instructed patient to go to nearest ER immediately for any worsening symptoms including but not limited to: fever, spreading rash, pain, sore throat, headache, dizziness, chest pain, trouble breathing, or any symptoms concerning to the patient. Differential Diagnosis Differential diagnosis: Likely cellulitis, eczema, insect bites and contact dermatitis Medical Records Attestation: I reviewed the patient's medical records. Critical Care Time Critical Care Time Critical Care Time: No Discharge Plan Discharge Clinical Impression: Contact dermatitis and other eczema, due to unspecified cause Patient Disposition: Home Condition: Stable Instructions: Antibiotic Form, Contact Dermatitis (ED), Dermatitis (ED) Additional Instructions: Apply triamcinolone ointment twice daily to the rash on your back do not never apply this to the face watch for any increasing infection--redness, swelling, drainage Tylenol or ibuprofen for any fever pain follow up with PCP in 7-10 days for a wound check recheck if develop fever, chills, increasing symptom Go to the ER if your symptoms become worse of if ANY new symptoms develop Zyrtec daily for 10 days Pepcid 20 mg daily for 10 days Steroid taper take as prescribed If your symptoms persist, change or worsen significantly before you can contact your personal physician then please, without delay, go to the emergency department for further evaluation. Follow-up with PCP in 7-10 days or sooner if needed Patient Language: Uzbek Prescriptions: New famotidine [Pepcid] 20 mg tablet 20 mg PO DAILY Qty: 10 0RF prednisone 10 mg tablet 10 mg PO DIRECTED Qty: 21 0RF Rx Instructions: see taper instructions 6 tabs day 1, 5 tabs day 2, 4 tabs day 3, 3 tabs day 4, 2 tabs day 5, 1 tab day6 triamcinolone acetonide 0.1 % ointment 1 applic topical BID Qty: 80 0RF Rx Instructions: Apply to rash twice daily never apply to the face No Action alendronate [Fosamax] 70 mg tablet 70 mg PO WEEKLY Qty: 12 3RF Follow-up/Referrals: Evelyn Dumont APRN [Primary Care Provider] - Time of Disposition: 11:40 Quality [place] Coma Scale Eyes: Open Verbal: Oriented and Alert Motor: Follows Commands [place] Coma Total Score: 15
== END 2024-08-14 11:43 | disposition home or self-care (01) ==
PROVIDERS: Emergency Provider Registered Nurse; PCP Nurse Practitioner Adult Health
DX: L25.9 Unspecified contact dermatitis, unspecified cause (principal); Z87.891 Personal history of nicotine dependence; M85.80 Other specified disorders of bone density and structure, unspecified site
CPT/HCPCS: 99213; G0463

== ENCOUNTER 2024-11-11 10:02 | Outpatient (CLI) | payer OTHER, SELFPAY ==
--- OUTSIDE RECORDS SUMMARY | 2013-07-14 04:30 | XMS_ITS | Continuity of Care Document ---
Author Name [facility] Organization [facility] Care Team Providers Care Catering Sous Chef Name Role Phone [facility] Unavailable Unavailable Problems Combined list of problems from Department of [facility] and [facility] facilities. It does not include entries that were removed or entered in error. 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 [facility] Tobacco dependence syndrome Active Condition [facility] Immunizations Combined list of available immunizations from the Department of [facility] and [facility] facilities. Immunization Series Date Given Administered By Site Reaction Lot Number CVX Code Drug Alteration Inspector Status Comments Source TDAP 2008 115 complet ed JAYLA Dominguez Social History Combined list of available smoking, tobacco, and other social history from Department of Defense and Veterans Affairs facilities. Social History Type Response Date Comment Chinedu e Tobacco smoking status NHIS CURRENT TOBACCO USER 07/14/2013 [facility] History of tobacco use TOBACCO MEDS OFFE RED BUT DECLINED 07/14/2013 [facility]
--- OUTSIDE RECORDS SUMMARY | 2017-05-23 03:45 | XMS_ITS | Continuity of Care Document ---
Author Organization [facility] Address [address] [place] [address] Phone Care Team Providers Care Transfusion Nurse Name Role Phone Sudeep Jaime MD, FACS Unavailable Unavailab le Allergies, Adverse Reactions, Alerts Substance Reaction Status Criticality No Known Allergies Active No Inform ation Medications Medication Instructions Dosage Effective Dates (start - stop) Status Comments Systane Gel 0.4 %-0.3 % eye drops - Active azithromycin 250 mg tablet - Active Systane Ultra 0.4 %-0.3 % eye drops - Active prednisone 10 mg tablet - Active hydroxyzine HCl 25 mg tablet - Active hydrocodone 5 mg-acetaminophen 325 mg tablet - Active Polytrim 10,000 unit-1 mg/mL eye drops instill 1 drop by ophthalmic route 4 times every day into left eye 1 drop - No Longer Active Procedures Procedure Date Eye Exam Established Pt Office/outpatient Visit, Est Office/outpatient Visit, New Office/outpatient Visit, New Advance Directives Directive Yes / No Effective Date File Name No Information Encounters Encounter Description Practice Location Reason(s) For Visit Diagnoses Date Provider Providers Copied on Encounter [facility], [address] [place] [address] [address], [place], [place], [id number], [place] tel:[phone] [place] Viral Conjunctiviti s Follow Up (chief complaint) Diffuse episcleritis of both eyes 8 Yeni Sudeep. [address] [place] [address], [address], [place], [place], [address], . tel:[phone] Referring Provider: Doug Plascencia, [address], [place], [address] . tel:[phone] [place] [facility] [place] [address] [place] [address] [address], [place], [place], [address], [place] tel:[phone] SEC [place] Professional WIE (chief complaint) No Information 8 Miguel Angel Camacho. [address], [address] [place], [address], [place]. tel:[phone] Referring Provider: Chandra Bradshaw, [address], [place], [address] . tel:[phone] Office/outpa tient Visit, [facility], [address] [place] [address] [address], [place], [place], [id number], [place] tel:[phone] [place] Professional pain (chief complaint) No Information 6 Paige Artis. [address], [address], [address], [place]. tel:[phone] Referring Provider: Chandra Bradshaw, [address], [place], [address] . tel:[phone] Office/outpa tient Visit, [facility], [address] [place] [address] [address], [place], [place], [address], [place] tel:[phone] SEC [address] No Information 1 Johnny Chávez. [address], [address], [place], [place], [address], . tel:[phone] Family History Family Member Type Diagnosis Age At Onset Sister Problem (finding) glaucoma Payers Payer name Insurance type Covered alliance party ID Marina ANNE (s) [id number] Social History Type Description Quantity Date Captured Comments Alcohol Use Details Caffeine Use Details Tobacco Use Status Cigarette smoker Smoking Status Current every day smoker Smoking Tobacco Use Details Cigarette: No Details Available Cigarette: No Details Available Sex Female Chief Complaint And Reason For Visit From encounter dated '05/23/2017 08:45'. Viral Conjunctivitis Follow Up (chief complaint). Description: The 52 year old female presents for Viral Conjunctivitis Follow Up in the right eye and left eye. Pt states she stoped taking Poly on 05/14 when she went to the ER and she also visited the ER yesterday. Pt states she got a shot of Prednisone and was given many other medications (listed in med module). Pt states OU are much worse. States they are red, painful and irritated. Reason For Referral Reason For Referral No Information Plan Of Treatment Date Type Action Status Goal Tobacco cessation counseling completed Goal Tobacco cessation counseling completed History Of Present Illness Encounter Date Complaint History Of Prese nt Illness Viral Conjunctivitis Follow Up T he 52 year old female presents for Viral Conjunctivitis Follow Up in the right eye and left eye. Pt states she stoped taking Poly on 05/14 when she went to the ER and she also visited the ER yesterday. Pt states she got a shot of Prednisone and was given many other medications (listed in med module). Pt states OU are much worse. States they are red, painful and irritated. WIE The 52 year old female presents for WIE in the right eye and left eye. Patient states 03/16 she had some blisters in her nose and they are now gone. Patient c/o since last Sunday eyes have been really dry and they hurt. Patient c/o eyes are swollen and really hurt. Patient states the inside of her nose is still dry. Patient saw Dr. Carreon and gave her neomycin/poly and she states they burn like fire. Patient has been using at every 10 minutes. pain The 50 year old female presents for a WIE. Patient c/o OD is sore, dry, and swollen. x 3 days. Patient states she noticed that no tears come out of OD. Functional Status Date Functional Assessmen t No Information Instructions Date Instruction Additional Infor felisa Impression/Plan - Di scussed exam findings with pt. No infection seen on today's exam. No antibiotic gtt use needed. She was given a steroid injection @ the ER and is on an oral steroid regimen and tapering q3 days. Her eyes will respond to the oral steroid she is taking so topical steroid isn't needed now. Rec keeping eyes lubricated. Discussed preservative toxicity and when using frequently AT's; preservative free AT is recommended. She will alternate with the AT's she has. Cold compress recommended. Discussed this being associated with an autoimmune condition and with this being active she should consider seeing her PCP for workup. Discussed cataract formation with steroid use. Return to the office in 2 weeks for follow up visit @ the [place] office or sooner if worse. Diffuse episcleritis of both eyes - Pt instructed to use At's Related to Diffuse episcleritis of both eyes Follow up - 1-2 week s for viral conjunctivitis follow up Impression/Plan - Se caitlin Conjunctivitis OU- Likely Viral, but due to extensive papillary reaction cannot rule out bacterial infection- Discussed with natural course and duration of viral conjunctivitis- Recommend Polytrim QID OU with cold compresses to improve symptoms- Patient to d/c artifical tears and switch to preserative free AT. Recommend Q1h WA OU- Likely highly contagious, proper hand washing reviewed- Return to clinic in 1-2 weeks for follow up Follow up - PRN Impression/Plan - Di scussed diagnosis in detail with patient. Used 18 gauge needle to drain stye RLL. Instructed pt to massage stye to drain. Start Tobra-Dexa QID OD x 1 week. erx to [facility]. Patient understands if scar tissue does not resolve on it's own, will need surgically removed or Kenalog injection. Return to clinic as needed. Hordeolum externum o f right lower eyelid - Educational material given Related to Hordeolum externum of right lower eyelid Assessments Type Assessment Date assessment Diffuse episcleritis of both eye s Patient Care Teams Name Effective Dates (start - stop) Status Members No Information
--- NOTE | ~2024-11-11 | XR_ITS ---
EXAM/ PROCEDURE: XR shoulder RT min 2V - 11/11/2024 10:05 CDT HISTORY: 59 years old Female with M25.511 - Pain in right shoulder COMPARISON: None available TECHNIQUE: Three view(s) FINDINGS/ IMPRESSION: There are no fractures or dislocations.Joint space narrowing, subchondral sclerosis, subchondral cyst formation and osteophyte formation, compatible with mild early osteoarthritis. Reviewed, dictated and finalized at location A.
--- OUTSIDE RECORDS SUMMARY | 2024-11-11 10:30 | XMS_ITS | Clinical Summary ---
Author Organization [facility] Address [address] [address] Phone Care Team Providers Care Offset Plate Maker Name Role Phone Marquis Reed Primary Care Provider [phone] Allergies Active Allergy Reactions Criticality Noted Date [...] P M CDT Height 161.3 cm (5' 3.5) 12/27/2017 2:51 PM CDT Body Mass Index 26.38 12/27/2017 2:51 PM CDT Plan of Treatment Health Maintenance Due Date Last Done Comments Hepatitis C Virus (HCV) Screening 1965 TdaP Immunization 1965 SARS-COV-2 Immunization (#1) 1972 Hepatitis B Immunization (1 of 3 - 19+ 3-dose series) 1986 Pneumococcal Immunization (5 0+ years) (1 of 2 - PCV) 1986 Zoster Immunization (1 of 2) 1986 Pap Smear 1988 Cervical Cancer Screening (CCS) 1997 HPV/Cotest 1997 Cologuard 2012 Colonoscopy 2012 Colorectal Cancer Screening 2012 Immunochemical Fecal Occult Blood 2012 Influenza Immunization (#1) 2024 01/04/2016 Respiratory Syncytial Virus (RSV) Immunization (Adult) (1 - 1-dose 75+ series) 2042 Human Papillomavirus (HPV) Immunization Aged Out No longer eligible b ased on patient's age to complete this topic Meningococcal Immunization (ACWY) Aged Out No longer eligible based on patient's age to complete this topic Rotavirus Immunization Aged Out No lo nger eligible based on patient's age to complete this topic Care Teams Offset Plate Maker Relationship Specialty Start Date End Date Marquis Reed DO [address] [place] [address] PCP - General Family Medicine 12/19/17
--- OUTSIDE RECORDS SUMMARY | 2024-11-11 10:30 | XMS_ITS | Clinical Summary ---
Author Organization [facility] [employer] Address [address] [place] [address] Phone Care Team Providers Care Plant Engineer Name Role Phone Santi Basilio MD Primary Care Provider [phone] Allergies Active Allergy Reactions Criticality Noted Date [...] on file Legal Sex Female 9:15 AM GRAIN GRADER Gender Identity Not on file Sexual Orientation Not on file Obstetrics History Para Term AB IAB SAB Ectopic Multiple Livin g Live Births 3 3 3 Date Outcome GA Total Labor Labor/2nd/3rd Weight Sex Type Anes PTL Kirstie A1 A5 Name Clin Term Term Term Last Filed Vital Signs Vital Sign Reading Time Taken Comments Blood Pressure 140/89 02/14/2024 3:47 PM GRAIN GRADER Pulse 82 02/14/2024 3:47 PM GRAIN GRADER Temperature 37.1 C (98.8 F) 02/14/2024 2:04 PM GRAIN GRADER Respiratory Rate 18 02/14/2024 2:04 PM GRAIN GRADER Oxygen Saturation 95% 02/14/2024 3:47 PM GRAIN GRADER Inhaled Oxygen Concentration - - Weight 59 kg (130 lb) 02/14/2024 2:04 PM GRAIN GRADER Height 161.3 cm (5' 3.5) 02/05/2024 8:52 AM GRAIN GRADER Body Mass Index 22.67 02/05/2024 8:52 AM GRAIN GRADER Plan of Treatment Health Maintenance Due Date Last Done Comments Depression Screening 1965 Hepatitis C Screening 1967 Hepatitis B Screening 1985 Regular Well Visit/Exam 18-64 1985 Pneumococcal vaccine <65 (1 of 2 - PCV) 1986 Zoster Vaccine (1 of 2) 1986 Breast Cancer Screening-Mammogram 11/03/2020 020 Lung Cancer Screening 02/01/2024 01/31/2023 Influenza Vaccine (#1) 2024 01/04/2016, 2013 DTaP/Tdap/Td Vaccine (3 - Td or Tdap) 10/02/202612/2016, 11/25/2008 Colon Cancer Screening-Colonoscopy 02/06/20332022 Colon Cancer Screening-CT Colonography Discontinued Colon Cancer Screening-DNA Stool Discontinued 02/07/20 Colon Cancer Screening-FIT Discontinued 02/06/2023, Colon Cancer Screening-Sigmoidoscopy Discontinued 01/24 Procedures Procedure Name Priority Date/Time Associated Diagnosis Comments COLONOSCOPY 02/06/2023 8:[address] LUNG CANCER SCREENING Schedule Routine, Read Routine (OP Routine) 01/31/2023 9:28 AM GRAIN GRADER Nicotine dependence with current use SCREENING MAMMOGRAM BILATERAL W TRAV Schedule Routine, Read Routine (OP Routine) 11/04/2019 4:08 PM CDT Encounter for screening mammogram for malignant neoplasm of breast from Last 3 Months or Most Recently Relevant to Health Maintenance Results * COLONOSCOPY (02/06/2023 8:04 AM GRAIN GRADER) Anatomical Region Laterality Modality Other Narrative Procedure Note Chuck Maldonado MD - 02/06/2023 8:04 AM CST [facility] Patient Name: Luciana Nathan Procedure Date: 02/06/2023 8:04 AM Date of : 1965 Admit Type: Outpatient Age: 57 Gender: Female Attending MD: Chuck Maldonado M.D. Room: [facility] ENDOSCOPY ROOM 1 Note Status: Finalized [...] under direct vision. The Pediatric Colonoscope PCF-H190L [id number] was introducedthrough the anus and advanced to [...] 8:04 AM Procedure Code(s): --- Professional --- 24471, Colonoscopy, flexible; with removal of tumor(s), polyp(s), or other lesion(s) by snare technique Diagnosis Code(s): --- Professional --- Z12.11, Encounter for screening for malignant neoplasm of colon K64.8, Other hemorrhoids D12.2, Benign neoplasm of ascending colon D12.5, Benign neoplasm of sigmoid colon K57.30, Diverticulosis of large intestine without perforation orabscess without bleeding CPT copyright 2020 [employer]. All rights reserved. The codes documented in this report are preliminary and upon cash control specialist reviewmay be revised to meet current compliance requirements. Recognized by the [employer] for promoting quality in endoscopy Chuck Maldonado MD ENDOSCOPY PROCEDURES Final Result * CT Lung Cancer Screening (01/31/2023 9:28 AM GRAIN GRADER) Anatomical Region Laterality Modality Chest N/A Computed Tomogra phy 01/31/2023 11:2 2 AM GRAIN GRADER Narrative 01/31/2023 11:53 AM GRAIN GRADER EXAM DESCRIPTION: CT LUNG CANCER SCREENING REASON [...] Neal Mtz M.D. KN: DENILSON Report ID: [id number] Reading Location: [place] [address] Procedure Note Neal Mtz MD - 01/31/2023 [...] Neal Mtz M.D. KN: DENILSON Report ID: [id number] Reading Location: [id number] Evelyn Dumont NP IMG CT PROCEDURES Final [...] other suspicious findings in the right breast. Self Screening Mammogram IMG MAMMO PROCEDURES Fi nal Result from Last 3 Months or Most Recently Relevant to Health Maintenance [facility] [place] [id number] [place], [place] [address]O [facility] Advance Directives For more information, please contact: [phone] * Full Code (Latest Code Status on File) Date Activated Date Inactivated Comments 02/06/2023 8:07 AM 02/06/2023 2:35 PM * Full Code Date Activated Date Inactivated Comments 02/06/2023 8:07 AM 02/06/2023 8:07 AM Care Teams Plant Engineer Relationship Specialty Start Date End Date Santi Basilio MD PCP - General 03/04/21
--- OUTSIDE RECORDS SUMMARY | 2024-11-11 10:30 | XMS_ITS | Clinical Summary ---
Author Organization [facility] Address [address] [place] [address] Care Team Providers Care Programmer Or Analyst Name Role Phone Bailey Kenia Andrade RN Unavailable [phone] Analisa Tirado Primary Care Provider Unavailab le Source Comments [facility],non-owned Affiliates and Associated Physician Practices is amultiple site organization consisting of ambulatory clinics and hospital sitesin [place], [place], [place] and [place]. This disclosure is being madepursuant to the Care Everywhere program and may not contain all information available regarding this patient. Last updated 17.[facility] Allergies Active Allergy Reactions Criticality Noted Date [...] OMEGA-3 PO Take by mouth. Active B Nbariel-H-Xyyqq Acid (B COMPLEX + C TR) TBCR [...] on file Legal Sex Female 8:01 AM SAFETY CLOTHING AND EQUIPMENT DEVELOPER Gender Identity Not on file Sexual Orientation Not on file Last Filed Vital Signs Vital Sign Reading Time Taken Comments Blood Pressure 120/86 04/13/2014 10:13 AM SAFETY CLOTHING AND EQUIPMENT DEVELOPER Pulse 69 02/26/2014 11:48 AM SAFETY CLOTHING AND EQUIPMENT DEVELOPER Temperature 36.3 C (97.4 F) 02/26/2014 11:48 AM SAFETY CLOTHING AND EQUIPMENT DEVELOPER Respiratory Rate 18 02/26/2014 11:48 AM SAFETY CLOTHING AND EQUIPMENT DEVELOPER Oxygen Saturation 100% 02/26/2014 11:48 AM SAFETY CLOTHING AND EQUIPMENT DEVELOPER Inhaled Oxygen Concentration - - Weight 71.2 kg (157 lb) 04/13/2014 10:13 AM SAFETY CLOTHING AND EQUIPMENT DEVELOPER Height 161.3 cm (5' 3.5) 03/23/2014 11:43 AM CS T Body Mass Index 27.38 03/23/2014 11:43 AM SAFETY CLOTHING AND EQUIPMENT DEVELOPER Plan of Treatment Health Maintenance Due Date Last Done Comments MADELYN (AGES 45-75) - COL ON CA SCREENING 1967 CT COLONOGRAPHY - COLON CA SCREENING 1967 FIT - COLON CA SCREENING 1967 FLEX SIG - COLON CA SCREENING 1967 LIPID TESTING 1967 HIV SCREENING 1982 HEPATITIS C SCREENING 03/14/1985 DTAP/TDAP/TD VACCINES (1 - Tdap) 1986 HEPATITIS B VACCINE (1 of 3 - 19+ 3-dose series) 1986 PAP SMEAR 1988 PNEUMOCOCCAL VACCINE 50+ (1 of 1 - PCV) 2017 ZOSTER VACCINE (1 of 2) 2017 MAMMOGRAM 11/03/2021 11/04/2019, 11/04/2019 COVID-19 VACCINE (1 - 2023-2 5 season) 2023 DEPRESSION SCREENING 03/26/2024 INFLUENZA VACCINE (#1) 2024 02/26/2014 COLON MONITORING 02/06/2033 02/06/2023 COLONOSCOPY - COLON CA SCREENING 02/06/2033 02/06/2023 [...] patient's age to complete this topic [place] [address] [employer] Advance Directives * Full Code (Latest Code Status on File) Date Activated Date Inactivated Comments 02/25/2014 12:34 PM 02/26/2014 3:55 PM * Full Code Date Activated Date Inactivated Comments 02/25/2014 9:20 AM 02/25/2014 12:34 PM Care Teams Programmer Or Analyst Relationship Specialty Start Date End Date Analisa Tirado Update Information PCP - General 08/05/20 Kenia Avalos, RN Upholstery Repairer 02/26/14
== END 2024-11-11 10:03 | disposition home or self-care (01) ==
LOC: ANHBWCIMG 10:04
PROVIDERS: PCP Nurse Practitioner Adult Health; Visit Provider Nurse Practitioner Adult Health
DX: M25.511 Pain in right shoulder (principal)
CPT/HCPCS: 73030